=== PATIENT | female | born 1960 | race Caucasian/White ===

== ENCOUNTER 2018-03-14 10:46 | Outpatient (CLI) | payer MEDICARE, MEDICAID ==
--- NOTE | 2018-03-14 12:55 | ULT ---
LIMITED ABDOMINAL ULTRASOUND OF THE AORTA: HISTORY: Abdominal aortic aneurysm. COMPARISON: 03/06/2015 FINDINGS: The aneurysm at the inferior aspect of the abdominal aorta measures 3.7 cm in AP dimension and extend s over an approximate length of 7 cm. IMPRESSION: Interval increase in the size of the abdominal aortic aneurysm since 03/06/2015. POS: ALAINA
== END 2018-03-14 10:47 | disposition home or self-care (01) ==
LOC: BICULT 10:46
PROVIDERS: ATTEND Internal Medicine Cardiovascular Disease
DX: I71.4 Abdominal aortic aneurysm, without rupture (principal)
CPT/HCPCS: 76706

== ENCOUNTER 2020-01-09 12:57 | Outpatient (CLI) | payer MEDICARE, MEDICAID ==
--- NOTE | 2020-01-09 13:24 | MMO ---
Bilateral MAMMO Bilat Screen [facility]. CLINICAL HISTORY: Patient is 59 years old and is seen for screening. The patient has the following family history of breast cancer: sister, at age 54. The patient has no personal history of cancer. VIEWS: The views performed were: bilateral craniocaudal with tomosynthesis and bilateral mediolateral oblique with tomosynthesis. This study has been interpreted with the assistance of computer-aided detection. MAMMOGRAM FINDINGS: The breasts are heterogeneously dense, which could obscure a lesion on mammography. There are benign appearing calcifications seen in both breasts. There are no suspicious masses, suspicious calcifications, or areas of architectural distortion. IMPRESSION: THERE IS NO MAMMOGRAPHIC EVIDENCE OF MALIGNANCY. A ROUTINE FOLLOW-UP MAMMOGRAM IN 1 YEAR IS RECOMMENDED. THE RESULTS OF THIS EXAM WERE SENT TO THE PATIENT. ACR BI-RADS Category 2 - Benign finding MAMMOGRAPHY NOTE: 1. A negative mammogram report should not delay a biopsy if a dominant of clinically suspicious mass is present. 2. Approximately 10% to 15% of breast cancers are not detected by mammography. 3. Adenosis and dense breasts may obscure an underlying neoplasm. Reported by: SHAI GARIBAY MD Electonically Signed: [id number]
--- NOTE | 2020-01-09 13:54 | BD ---
BONE DENSITOMETRY: HISTORY: Postmenopausal screening. FINDINGS: Lumbar Spine: BMD (g/cm2) L1 0.831 T-Score: -1.4 L2 0.986 T-Score: -0.4 L3 0.962 T-Score: -1.1 L4 0.806 T-Score: -2.3 L1-L4 0.895 T-Score: -1.4 Femoral Neck: 0.542 T-Score: -2.8 Total Femur: 0.580 T-Score: -3.0 Impression: 1. Bone mineral density of the femoral neck indicates osteoporosis. 2. Bone mineral density of the lumbar spine indicates osteopenia. POS: AH
== END 2020-01-09 12:58 | disposition home or self-care (01) ==
LOC: BICMAMMO 12:57
PROVIDERS: ATTEND Family Medicine
DX: Z12.31 Encounter for screening mammogram for malignant neoplasm of breast (principal); Z13.820 Encounter for screening for osteoporosis; M81.0 Age-related osteoporosis without current pathological fracture; M85.88 Other specified disorders of bone density and structure, other site; Z80.3 Family history of malignant neoplasm of breast; Z78.0 Asymptomatic menopausal state
CPT/HCPCS: 77063; 77067; 77080

== ENCOUNTER 2020-02-06 06:16 | Outpatient (CLI) | payer MEDICARE, MEDICAID ==
[2020-02-07 12:04] LABS: SARS-CoV-2 MS2 Positive; SARS-CoV-2 N Gene Negative; SARS-CoV-2 S Gene Negative; SARS-CoV-2 by NAA Not Detected (NotDetected); SARS-CoV-2 orf1ab Negative
== END 2020-02-06 06:17 | disposition home or self-care (01) ==
LOC: LABBT 06:16
PROVIDERS: ATTEND Internal Medicine Gastroenterology
DX: Z20.828 Contact with and (suspected) exposure to other viral communicable diseases (principal)
CPT/HCPCS: 87635; U0003

== ENCOUNTER 2020-02-11 07:10 | Day surgery (SDC) | payer MEDICARE, MEDICAID ==
[2020-02-08 11:46] VITALS: BMI 28.5
[2020-02-11] MEDS ORDERED: PROPOFOL 200 MG/20 ML VIAL ONE (14:08)
--- NOTE | 2020-02-11 16:35 | OP ---
DATE OF PROCEDURE: 02/11/2020 PROCEDURE PERFORMED: Esophagogastroduodenoscopy with percutaneous endoscopic gastrostomy tube placement and colonoscopy. PREOPERATIVE DIAGNOSES: Dysphagia and colon cancer screening. PREOPERATIVE NOTE: Ms. Prince has oropharyngeal and esophageal dysphagia. She has had a prior stroke and has spent previously 10 years in the intermediate, but has been home with her sister for the last 7 years. Her sister reports that she is progressively having more trouble eating and refusing her feeds and is taking over an hour for each feeding. She gargles on her food when she does eat. DESCRIPTION OF PROCEDURE: Informed consent was obtained from the patient. She was sedated with total intravenous anesthesia. The bite block was placed and the endoscope was advanced easily to the second portion of the duodenum and retroflexion was performed in the stomach. The patient received 2 g of Ancef prior to the procedure. The esophagus was normal. The GE junction was normal. The stomach was normal including retroflexed views. The pylorus and first and second portions of the duodenum were normal. There was no esophageal stricture or narrowing. The lower esophageal sphincter appears to relax. LES was not significantly tense. The stomach was fully insufflated. The appropriate site in the left upper quadrant below the left ribs was transilluminated and palpated. The skin was sterilized with chlorhexidine and anesthetized with 5 mL of 1% lidocaine. A small 1 cm skin incision was performed. The catheter was placed through the incision into the stomach easily in one attempt under direct visualization. The wire was placed through the catheter and grasped with a snare and pulled out through the patient's mouth. The 20-Lao gastrostomy tube was then placed by the pull-through technique. External bumper was placed at 4 cm which was not tight. Stack of 2x2s was placed underneath the bumper. The skin had antibiotic ointment applied at the incision site. Second-look endoscopy showed the internal bumper to be in good position. The patient tolerated the procedure well without immediate complications. The patient was turned around and rectal exam was performed and was normal. Preparation quality was good. The colonoscope was advanced to the cecum, where the ileocecal valve and appendiceal orifice were clearly identified. There was moderate diverticulosis in the sigmoid colon. The remainder of the colonic mucosa was normal throughout. Retroflexed views in the rectum were normal. IMPRESSION: 1. Normal EGD. 2. Successful placement of 20-Lao percutaneous endoscopic gastrostomy tube with a rubber internal bumper and external bumper placed at 4 cm. 3. Moderate diverticulosis of the sigmoid colon. 4. Otherwise normal colonoscopy. RECOMMENDATIONS: 1. Dietitian consultation. 2. Modified barium swallow and barium esophagogram to be scheduled in the future. 3. Repeat colonoscopy in 10 years. 4. Return to the office tomorrow to recheck the PEG tube. Job ID: [id number]
== END 2020-02-11 14:10 | disposition home or self-care (01) ==
LOC: SDC 07:10
PROVIDERS: ATTEND Internal Medicine Gastroenterology
PROC: 0DJD8ZZ Inspection of Lower Intestinal Tract, Via Natural or Artificial Opening Endoscopic (ICD-10-PCS; principal; 2020-02-11)
PROC: 0DH63UZ Insertion of Feeding Device into Stomach, Percutaneous Approach (ICD-10-PCS; 2020-02-11)
DX: R13.12 Dysphagia, oropharyngeal phase (principal); R13.19 Other dysphagia; K59.09 Other constipation; K57.30 Diverticulosis of large intestine without perforation or abscess without bleeding; F79 Unspecified intellectual disabilities; K92.0 Hematemesis; F03.90 Unspecified dementia, unspecified severity, without behavioral disturbance, psychotic disturbance, mood disturbance, and anxiety; E03.9 Hypothyroidism, unspecified; I25.2 Old myocardial infarction; I10 Essential (primary) hypertension; E78.00 Pure hypercholesterolemia, unspecified; E78.5 Hyperlipidemia, unspecified; I69.351 Hemiplegia and hemiparesis following cerebral infarction affecting right dominant side; G40.909 Epilepsy, unspecified, not intractable, without status epilepticus; I71.2 Thoracic aortic aneurysm, without rupture; F41.9 Anxiety disorder, unspecified; Z87.891 Personal history of nicotine dependence; Z79.899 Other long term (current) drug therapy
CPT/HCPCS: J0690; J2704

== ENCOUNTER 2020-02-12 23:54 | Inpatient (IN) | payer MEDICARE, MEDICAID ==
[2020-02-13 01:32] LABS: CKMB 0.9 ng/mL (0-6.6)
[2020-02-13 01:48] LABS: SARS-CoV-2 NAA Rapid Test Not Detected (NotDetected)
[2020-02-13] MEDS ORDERED: Oseltamivir 6 MG/ML ORAL SUSP PO SCH (02:00)
--- NOTE | 2020-02-13 02:58 | HP ---
CHIEF COMPLAINT: Shortness of breath and fever. HISTORY OF PRESENT ILLNESS: Ms. Prince is a 59-year-old female with past medical history of coronary artery disease, myocardial infarction, hyperlipidemia, hypertension, CVA, seizures, among others, transferred from [facility] for pneumonia. The patient was at her GI doctor's office today for evaluation of her recently placed PEG tube. After leaving the appointment, she immediately became short of breath. She has chronic dysphagia and a very weak cough. She was taken to [place] [facility] and due to high fever, was given ceftriaxone, metronidazole along with steroids and DuoNeb. She required 2 L of oxygen nasal cannula. She is not on oxygen at home. The patient's sister is her primary caregiver. The patient has a history of CVA with residual stroke deficits. She had a coronavirus test one week ago and was negative. She got her flu shot in the beginning of December. Workup in the emergency room, the patient was positive for influenza B, chest x-ray showed bilateral infiltrates, basilar? She had elevated WBC count of 17,000 and was tachycardic. Septic workup done in the ED. She was started on IV antibiotics. The patient is being transferred to our medical facility for further management. PAST MEDICAL HISTORY: As mentioned above in history of present illness. PAST SURGICAL HISTORY: Feeding tube placement on 02/11/2020. PAST SOCIAL HISTORY: No smoking history. Denies drug use. No alcohol use. FAMILY HISTORY: Reviewed and noncontributory. HOME MEDICATIONS: Please see home medication reconciliation form for updated medications. ALLERGIES: NO KNOWN ALLERGIES. REVIEW OF SYSTEMS: Unable to obtain due to the patient's underlying medical condition. The patient is unable to give any history. Most of the history from the patient's family/sister. PHYSICAL EXAMINATION: GENERAL: The patient is awake, alert, in mild distress. VITAL SIGNS: Blood pressure 139/77, pulse is 75, respiratory rate is 28, temperature is 99.6, and oxygen saturation 96% on room air. HEAD AND NECK: Normocephalic and atraumatic. Neck is supple. CHEST: Coarse bilateral breath sounds. HEART: S1 and S2. Regular. ABDOMEN: Soft. Feeding tube in place. Bowel sounds present. NEUROLOGIC: Awake and alert. No new residual deficits. PSYCHIATRIC: Unable to assess. EXTREMITIES: No clubbing. No cyanosis. LABORATORY DATA: WBC 17.3, hemoglobin 14.2, platelets 156. Sodium 141, potassium 4, BUN is 18, creatinine 0.9, glucose 132. Initial troponin 0.08, repeat troponin is 0.09. BNP is 280. Chest x-ray, cardiomegaly with mild interstitial densities at the lung bases. ASSESSMENT: 1. Pneumonia, aspiration. 2. Influenza B. 3. Dysphagia, high risk for aspiration. 4. Recent feeding tube placement. 5. History of cerebrovascular accident with residual deficits. 6. Coronary artery disease. 7. Seizure disorder. PLAN: 1. Admit. 2. Septic workup done in the ED. 3. IV antibiotics for possible aspiration. 4. Cautious IV fluid hydration. 5. The patient was given aspirin. 6. Seizure troponins. 7. Consult Cardiology in a.m. for ? Detectable troponin. 8. Reconcile home medications. 9. DVT prophylaxis as appropriate. 10. Expected length of stay, 2 midnights. Job ID: [id number]
[2020-02-13] MEDS: Dextrose 5 %-0.45 % NaCl 1,000 ML IV SCH ×2 (04:03→16:47)
[2020-02-13 04:20] VITALS: BMI 23.4
[2020-02-13] MEDS: Piperacillin/Tazobactam 3.375 GM in Sodium Chloride 0.9% 100 ML IVPB SCH ×3 (04:58→17:02)
[2020-02-13 05:25] LABS: Troponin I 0.087 ng/mL (< 0.028)
[2020-02-13 06:57] LABS: Troponin I 0.055 ng/mL (< 0.028)
[2020-02-13] MEDS: Levothyroxine Sodium 50 MCG TAB PO SCH (08:32)
[2020-02-13] MEDS: hydrALAZINE 10 MG TAB PO SCH ×2 (08:32→21:12)
[2020-02-13] MEDS: Lisinopril 20 MG TAB PO SCH (08:32)
[2020-02-13] MEDS: Multivit, Therapeutic 1 TAB PO SCH (08:33)
[2020-02-13] MEDS: Amlodipine 10 MG TAB PO SCH (08:33)
[2020-02-13] MEDS ORDERED: AMLODIPINE BESYLATE 10 MG PO SCH (09:00)
[2020-02-13] MEDS ORDERED: Non-Formulary Item 1 EACH (Multivitamin [Multi-Vitamin Daily] 1 TABLET Tablet) PO SCH (09:00)
[2020-02-13] MEDS ORDERED: Non-Formulary Item 1 EACH (Lisinopril [Lisinopril] 40 MG Tablet) PO SCH (09:00)
[2020-02-13] MEDS ORDERED: PHENYTOIN SODIUM 300 MG PO SCH (09:00)
[2020-02-13] MEDS ORDERED: Aspirin 300 MG Suppository PR SCH (09:00)
--- NOTE | 2020-02-13 10:28 | CON ---
DATE OF CONSULTATION: 02/13/2020 REASON FOR CONSULTATION: Increased troponin in the setting of influenza and pneumonia. HISTORY OF PRESENT ILLNESS: This is a 59-year-old woman with history of severe stroke in the past, cared for by her family. The patient recently had a PEG tube placed at the hospital with fever and pneumonia. As part of the evaluation, she has undergone troponin levels which were slightly elevated. No chest pain or pressure. The patient is really nonverbal, however, she does seem to understand. MEDICATIONS: Please see nurse's notes, but at home she was on: 1. Lisinopril. 2. Amlodipine. 3. Atorvastatin. ALLERGIES: NONE KNOWN. SOCIAL HISTORY: Cared for by her family. Previous stroke. She is bedridden, nonverbal. PHYSICAL EXAMINATION: VITAL SIGNS: Blood pressure 120/60, pulse 60 and regular. LUNGS: Clear. CARDIAC: Normal S1. Normal S2. ABDOMEN: Soft, nontender. EXTREMITIES: Warm and dry. No cyanosis. No edema. NEUROLOGIC: The patient has had previous extensive stroke as is outlined in the chart. LABORATORY DATA: Troponin 0.055. EKG, sinus rhythm, some nonspecific ST changes, some occasional PVCs. ASSESSMENT: 1. Pneumonia. 2. Influenza. 3. Probable underlying coronary artery disease. 4. Increased troponin, demand ischemia, type 2 infarction. PLAN: 1. Continue supportive care from a pulmonary standpoint. 2. She is on aspirin. 3. Antibiotics. 4. Atorvastatin. 5. Lisinopril. 6. Echocardiogram has been ordered. No other recommendations. Job ID: [id number]
--- NOTE | 2020-02-13 12:13 | PDOC.HOSPP ---
- Subjective Encounter Date: 02/13/20 Encounter Time: 11:15 Subjective: awake, speaks very few words, not in distress has cough and is not able to clear oral secretions no abd pain or chest pain or nausea - Objective Vital Signs & Weight: Vital Signs (12 hours) Temp Pulse Resp BP Pulse Ox 02/13/20 11:15 98 F 68 20 142/73 H 98 02/13/20 08:33 61 02/13/20 08:32 61 02/13/20 07:15 97.7 F 61 20 120/64 98 02/13/20 04:22 97 02/13/20 03:30 97.4 F L 60 16 171/71 H 97 Weight Weight 136 lb 11.2 oz Hospitalist ROS - Medication Medications: Active Medications Generic Name Dose Route Start Last Admin Trade Name Freq PRN Reason Stop Dose Admin Amlodipine Besylate 10 mg 02/13/20 09:00 02/13/20 08:33 Amlodipine 10 Mg Tab PO 10 mg DAILY WAN Administration Aspirin 300 mg 02/13/20 09:00 02/13/20 08:33 Aspirin 300 Mg Suppository KS Not Given DAILY WAN Hydralazine HCl 10 mg 02/13/20 09:00 02/13/20 08:32 Hydralazine 10 Mg Tab PO 10 mg Q12HR WAN Administration Dextrose/Sodium Chloride 1,000 mls @ 75 mls/hr 02/13/20 01:30 02/13/20 04:03 D5 1/2 Ns IV 1,000 mls .[id number] WAN Administration Piperacillin Sod/Tazobactam 100 mls @ 200 mls/hr 02/13/20 06:00 02/13/20 11:07 Sod 3.375 gm/ Sodium Chloride IVPB 100 mls Q6HR WAN Administration Levothyroxine Sodium 50 mcg 02/13/20 09:00 02/13/20 08:32 Levothyroxine Sodium 50 Mcg Tab PO 50 mcg DAILY WAN Administration Lisinopril 40 mg 02/13/20 09:00 02/13/20 08:32 Lisinopril 20 Mg Tab PO 40 mg DAILY WAN Administration Multivitamins 1 tab 02/13/20 09:00 02/13/20 08:33 Multivit, Therapeutic 1 Tab PO 1 tab DAILY WAN Administration Phenytoin Sodium 300 mg 02/13/20 09:00 02/13/20 08:32 Phenytoin Sodium Extended 100 Mg Cap PO 300 mg DAILY WAN Administration Sodium Chloride 10 ml 02/13/20 09:00 02/13/20 08:33 Flush - Normal Saline 10 Ml Syringe IVF 10 ml Q12HR WAN Administration - Exam General Appearance: awake alert Eye: PERRL, anicteric sclera ENT: normocephalic atraumatic, moist mucosa Neck: supple, no JVD Heart: RRR, no murmur Respiratory: no wheezes, rales, rhonchi Gastrointestinal: soft, non-tender, non-distended, normal bowel sounds Gastrointestinal - other findings: peg+ Extremities: no cyanosis, no edema Neurological: no new deficit Hosp A/P (1) Aspiration pneumonia Code(s): J69.0 - PNEUMONITIS DUE TO INHALATION OF FOOD AND VOMIT Status: Acute Qualifiers: Aspiration pneumonia type: due to regurgitated food Laterality: bilateral (2) Dysphagia Code(s): R13.10 - DYSPHAGIA, UNSPECIFIED Status: Chronic Qualifiers: Dysphagia type: oropharyngeal phase Qualified Code(s): R13.12 - Dysphagia, oropharyngeal phase (3) Influenza B Code(s): J10.1 - FLU DUE TO OTH IDENT INFLUENZA VIRUS W OTH RESP MANIFEST Status: Suspected (4) Hemiparesis and other late effects of cerebrovascular accident Code(s): I69.359 - HEMIPLGA FOLLOWING CEREBRAL INFARCTION AFFECTING UNSP SIDE; I69.398 - OTHER SEQUELAE OF CEREBRAL INFARCTION Status: Chronic (5) CAD (coronary artery disease) Code(s): I25.10 - ATHSCL HEART DISEASE OF [place] CORONARY ARTERY W/O ANG PCTRS Status: Chronic Qualifiers: Coronary Disease-Associated Artery/Lesion type: [place] artery [place] vs. transplanted heart: [place] heart Associated angina: with stable angina Qualified Code(s): I25.118 - Atherosclerotic heart disease of [place] coronary artery with other forms of angina pectoris (6) Seizure disorder Code(s): G40.909 - EPILEPSY, UNSP, NOT INTRACTABLE, WITHOUT STATUS EPILEPTICUS Status: Chronic (7) HTN (hypertension) Code(s): I10 - ESSENTIAL (PRIMARY) HYPERTENSION Status: Chronic Qualifiers: Hypertension type: essential hypertension Qualified Code(s): I10 - Essential (primary) hypertension (8) Dyslipidemia Code(s): E78.5 - HYPERLIPIDEMIA, UNSPECIFIED Status: Chronic (9) Hypothyroidism Code(s): E03.9 - HYPOTHYROIDISM, UNSPECIFIED Status: Chronic Qualifiers: Hypothyroidism type: acquired Qualified Code(s): E03.9 - Hypothyroidism, unspecified - Plan is on zosyn, nebs and tamiflu I cannot find influenza screen results being +ve for B type, will check records again continue norvasc, lisinopril, asp, hydralazine, lipitor, dilantin, synthroid and aricept for now speech consultation, for MBS in am PT to mobilize as tolerated cardiology is not planning any procedures now, will transfer to medical floor echo pending hemostable for now
[2020-02-13] MEDS ORDERED: FLU VACC QS2020-21(6MOS UP)/PF 60 MCG/0.5 ML SYRINGE IM ONE (21:00)
[2020-02-13] MEDS: Atorvastatin Calcium 40 MG TAB PO SCH (21:12)
[2020-02-13] MEDS: Oseltamivir 6 MG/ML ORAL SUSP PO SCH (21:12)
[2020-02-13] MEDS: Donepezil HCl 10 MG TAB PO SCH (21:12)
[2020-02-13] MEDS: Acetaminophen 325 MG TAB PO PRN (22:19)
[2020-02-13] MEDS ORDERED: diphenhydrAMINE 50 MG/ML VIAL IVP SCH (23:30)
--- NOTE | 2020-02-13 23:35 | PDOC.EVN ---
Event Note - Event Note Event Note: Nursing called, red rash on patient face and trunk, believes was on face today, and is now spread. Patient VSS, no resp. distress, no stridor, getting multiple abx and tamiflu. Gave benadryl and pepcid x 1 dose. continue to monitor.
[2020-02-13] MEDS ORDERED: Famotidine/PF 20 mg/2ml Vial SLOW IVP SCH (23:45)
[2020-02-14] MEDS: Piperacillin/Tazobactam 3.375 GM in Sodium Chloride 0.9% 100 ML IVPB SCH ×2 (00:22→05:13)
[2020-02-14] MEDS: Dextrose 5 %-0.45 % NaCl 1,000 ML IV SCH ×2 (05:14→15:02)
[2020-02-14] MEDS: Acetaminophen 325 MG TAB PO PRN ×2 (05:15→20:08)
[2020-02-14] MEDS: Clindamycin 150 MG CAP PO SCH ×3 (06:38→23:00)
[2020-02-14 06:41] LABS: #Eosinphils 0.2 thou/uL (0.0-0.7); #Lymphocytes 0.9 thou/uL (1.20-3.40); #Monocytes 0.5 thou/uL (0.11-0.59); #Neutrophils 6.3 thou/uL (1.40-6.50); %Basophils 0.1 % (0.0-1.0); %Eosinophils 2.1 % (0.0-10.0); %Lymphocytes 11.1 % (21.0-51.0); %Monocytes 5.9 % (0.0-10.0); %Neutrophils 80.9 % (42.0-75.0); Hemoglobin 11.2 g/dL (12.0-16.0); Mean Corpuscular HGB CONC 33.4 g/dL (32.0-36.0); Mean Corpuscular Hemoglobin 32.7 pg (27.0-31.0); Mean Platelet Volume 10.3 fL (7.4-10.4); Platelet Count 126 thou/uL (130-400); RBC Distribution Width 11.7 % (11.5-14.5); Red Blood Cell (RBC) Count 3.42 mill/uL (4.20-5.40); White Blood Cell (WBC) Count 7.8 thou/uL (4.8-10.8)
[2020-02-14 07:04] LABS: ALT (SGPT) 16 U/L (8-55); AST (SGOT) 17 U/L (5-34); Alkaline Phosphatase 82 U/L (40-110); Anion Gap 11 mmol/L (10-20); BUN (Urea Nitrogen) 19 mg/dL (9.8-20.1); Bilirubin, Total 0.3 mg/dL (0.2-1.2); Calc. Creatinine Clearance 52 mL/min (70-130); Calcium 8.5 mg/dL (7.8-10.44); Carbon Dioxide 24 mmol/L (23-31); Chloride 105 mmol/L (98-107); Estimated GFR-MDRD 50; Globulin 2.2 g/dL (2.4-3.5); Glucose 126 mg/dL (80-115); Potassium 3.4 mmol/L (3.5-5.1); Protein, Total 5.2 g/dL (6.0-8.3); Sodium 137 mmol/L (136-145)
[2020-02-14] MEDS: Lisinopril 20 MG TAB PO SCH (09:05)
[2020-02-14] MEDS: Aspirin 81 mg Enteric Coated Tablet PO SCH (09:05)
[2020-02-14] MEDS: Multivit, Therapeutic 1 TAB PO SCH (09:05)
[2020-02-14] MEDS: Amlodipine 10 MG TAB PO SCH (09:06)
[2020-02-14] MEDS: Famotidine/PF 20 mg/2ml Vial SLOW IVP SCH (09:07)
[2020-02-14] MEDS: Levothyroxine Sodium 50 MCG TAB PO SCH (11:04)
[2020-02-14] MEDS: methylPREDNISolone Sod Succ 40 MG VIAL IVP SCH ×2 (14:06→22:59)
--- NOTE | 2020-02-14 14:16 | PDOC.HOSPP ---
- Subjective Encounter Date: 02/14/20 Encounter Time: 10:00 Subjective: rash is better this morning, no itching or coughing is breathing better, speaks few words, not in distress - Objective Vital Signs & Weight: Vital Signs (12 hours) Temp Pulse Resp BP BP Pulse Ox Pulse Ox 02/14/20 12:51 98.9 F 70 16 120/72 97 02/14/20 10:50 98 02/14/20 09:06 64 118/75 02/14/20 09:05 118/75 02/14/20 08:00 98 02/14/20 07:24 99.5 F 64 16 118/75 98 02/14/20 07:18 78 16 98 02/14/20 04:58 98.4 F 66 18 124/64 97 02/14/20 02:30 61 16 98 Weight Admit Weight 136 lb 11.2 oz Weight 136 lb 11.2 oz I&O: 02/13/20 02/14/20 02/15/20 06:59 06:59 06:59 Intake Total 2497 534 Output Total 500 Balance 1997 534 Result Diagrams: 02/14/20 06:30 02/14/20 06:30 Hospitalist ROS - Medication Medications: Active Medications Generic Name Dose Route Start Last Admin Trade Name Freq PRN Reason Stop Dose Admin Acetaminophen 650 mg 02/13/20 21:40 02/14/20 05:15 Acetaminophen 325 Mg Tab PO 650 mg Q4H PRN Administration Headache/Fever/Mild Pain (1-3) Albuterol/Ipratropium 3 ml 02/13/20 15:05 02/14/20 07:18 Ipratropium/Albuterol Sulfate 3 Ml Neb NEB 3 ml [id number] WAN Administration Amlodipine Besylate 10 mg 02/13/20 09:00 02/14/20 09:06 Amlodipine 10 Mg Tab PO 10 mg DAILY WAN Administration Aspirin 81 mg 02/14/20 09:00 02/14/20 09:05 Aspirin 81 Mg Enteric Coated Tablet PO 81 mg DAILY WAN Administration Atorvastatin Calcium 40 mg 02/13/20 21:00 02/13/20 21:12 Atorvastatin Calcium 40 Mg Tab PO 40 mg HS WAN Administration Clindamycin HCl 300 mg 02/14/20 07:00 02/14/20 06:38 Clindamycin 150 Mg Cap PO 300 mg Q8H WAN Administration Donepezil HCl 10 mg 02/13/20 21:00 02/13/20 21:12 Donepezil Hcl 10 Mg Tab PO 10 mg HS WAN Administration Famotidine 40 mg 02/14/20 09:00 02/14/20 09:07 Famotidine/Pf 20 Mg/2ml Vial SLOW IVP 40 mg DAILY WAN Administration Dextrose/Sodium Chloride 1,000 mls @ 75 mls/hr 02/13/20 01:30 02/14/20 05:14 D5 1/2 Ns IV 1,000 mls .[id number] WAN Administration Lisinopril 40 mg 02/13/20 09:00 02/14/20 09:05 Lisinopril 20 Mg Tab PO 40 mg DAILY WAN Administration Methylprednisolone Sodium Succinate 20 mg 02/14/20 14:00 02/14/20 14:06 Methylprednisolone Sod Succ 40 Mg Vial IVP 20 mg Q8HR WAN Administration Multivitamins 1 tab 02/13/20 09:00 02/14/20 09:05 Multivit, Therapeutic 1 Tab PO 1 tab DAILY WAN Administration Oseltamivir Phosphate 75 mg 02/13/20 21:00 02/13/20 21:12 Oseltamivir 6 Mg/Ml Oral Susp PO 75 mg Q24HR WAN Administration Phenytoin Sodium 300 mg 02/13/20 09:00 02/14/20 09:05 Phenytoin Sodium Extended 100 Mg Cap PO 300 mg DAILY WAN Administration Sodium Chloride 10 ml 02/13/20 09:00 02/14/20 09:06 Flush - Normal Saline 10 Ml Syringe IVF Not Given Q12HR WAN - Exam General Appearance: awake alert Eye: PERRL, anicteric sclera ENT: no oropharyngeal lesions, dry oral mucosa Neck: supple, no JVD Heart: RRR, no murmur Respiratory: no wheezes, no rales Gastrointestinal: soft, non-tender, non-distended, normal bowel sounds Extremities: no cyanosis, no edema Neurological: cranial nerve grossly intact, hemiplegia Hosp A/P (1) Aspiration pneumonia Code(s): J69.0 - PNEUMONITIS DUE TO INHALATION OF FOOD AND VOMIT Status: Acute Qualifiers: Aspiration pneumonia type: due to regurgitated food Laterality: bilateral (2) Dysphagia Code(s): R13.10 - DYSPHAGIA, UNSPECIFIED Status: Chronic Qualifiers: Dysphagia type: oropharyngeal phase Qualified Code(s): R13.12 - Dysphagia, oropharyngeal phase (3) Influenza B Code(s): J10.1 - FLU DUE TO OTH IDENT INFLUENZA VIRUS W OTH RESP MANIFEST Status: Acute (4) Hemiparesis and other late effects of cerebrovascular accident Code(s): I69.359 - HEMIPLGA FOLLOWING CEREBRAL INFARCTION AFFECTING UNSP SIDE; I69.398 - OTHER SEQUELAE OF CEREBRAL INFARCTION Status: Chronic (5) CAD (coronary artery disease) Code(s): I25.10 - ATHSCL HEART DISEASE OF [place] CORONARY ARTERY W/O ANG PCTRS Status: Chronic Qualifiers: Coronary Disease-Associated Artery/Lesion type: [place] artery [place] vs. transplanted heart: [place] heart Associated angina: with stable angina Qualified Code(s): I25.118 - Atherosclerotic heart disease of [place] coronary artery with other forms of angina pectoris (6) Seizure disorder Code(s): G40.909 - EPILEPSY, UNSP, NOT INTRACTABLE, WITHOUT STATUS EPILEPTICUS Status: Chronic (7) HTN (hypertension) Code(s): I10 - ESSENTIAL (PRIMARY) HYPERTENSION Status: Chronic Qualifiers: Hypertension type: essential hypertension Qualified Code(s): I10 - Essential (primary) hypertension (8) Dyslipidemia Code(s): E78.5 - HYPERLIPIDEMIA, UNSPECIFIED Status: Chronic (9) Hypothyroidism Code(s): E03.9 - HYPOTHYROIDISM, UNSPECIFIED Status: Chronic Qualifiers: Hypothyroidism type: acquired Qualified Code(s): E03.9 - Hypothyroidism, unspecified - Plan is on clindamycin, nebs and tamiflu continue norvasc, lisinopril, asp, hydralazine, lipitor, dilantin, synthroid and aricept for now PT to mobilize as tolerated echo pending hemostable for now she developed drug rash with redness all over, zosyn is dc'd now, steroids, stable now with rash slowly receding d/w sister over phone and gave full updates, she is aware that patient is high risk for aspiration and no oral diet will be attempted now family essentially lift her up, she sometimes helps with transfers and 1-2 steps...this has been for last 10 yrs now per sister, they want her coming home when ready for dc
[2020-02-14] MEDS: Donepezil HCl 10 MG TAB PO SCH (20:05)
[2020-02-14] MEDS: Atorvastatin Calcium 40 MG TAB PO SCH (20:05)
[2020-02-14] MEDS: Oseltamivir 6 MG/ML ORAL SUSP PO SCH (20:05)
[2020-02-15] MEDS: Levothyroxine Sodium 50 MCG TAB PO SCH (05:44)
[2020-02-15] MEDS: methylPREDNISolone Sod Succ 40 MG VIAL IVP SCH (05:45)
[2020-02-15] MEDS: Clindamycin 150 MG CAP PO SCH ×3 (06:09→21:31)
[2020-02-15] MEDS: Dextrose 5 %-0.45 % NaCl 1,000 ML IV SCH (06:13)
[2020-02-15 07:53] LABS: #Lymphocytes 0.5 thou/uL (1.20-3.40); #Monocytes 0.4 thou/uL (0.11-0.59); #Neutrophils 3.7 thou/uL (1.40-6.50); %Basophils 0.2 % (0.0-1.0); %Eosinophils 0.8 % (0.0-10.0); %Lymphocytes 11.4 % (21.0-51.0); %Monocytes 8.9 % (0.0-10.0); %Neutrophils 78.8 % (42.0-75.0); Hemoglobin 10.7 g/dL (12.0-16.0); Mean Corpuscular HGB CONC 32.1 g/dL (32.0-36.0); Mean Corpuscular Hemoglobin 30.9 pg (27.0-31.0); Mean Corpuscular Volume 96.1 fL (78.0-98.0); Mean Platelet Volume 11.4 fL (7.4-10.4); Platelet Count 138 thou/uL (130-400); RBC Distribution Width 11.5 % (11.5-14.5); Red Blood Cell (RBC) Count 3.46 mill/uL (4.20-5.40); White Blood Cell (WBC) Count 4.7 thou/uL (4.8-10.8)
[2020-02-15 08:06] LABS: ALT (SGPT) 20 U/L (8-55); AST (SGOT) 19 U/L (5-34); Alkaline Phosphatase 80 U/L (40-110); Anion Gap 11 mmol/L (10-20); BUN (Urea Nitrogen) 16 mg/dL (9.8-20.1); Bilirubin, Total Less than 0.2 mg/dL (0.2-1.2); Calc. Creatinine Clearance 60 mL/min (70-130); Calcium 8.4 mg/dL (7.8-10.44); Carbon Dioxide 27 mmol/L (23-31); Chloride 107 mmol/L (98-107); Estimated GFR-MDRD 59; Globulin 2.3 g/dL (2.4-3.5); Glucose 155 mg/dL (80-115); Protein, Total 5.3 g/dL (6.0-8.3); Sodium 141 mmol/L (136-145)
[2020-02-15] MEDS: Lisinopril 20 MG TAB PO SCH (09:13)
[2020-02-15] MEDS: Famotidine/PF 20 mg/2ml Vial SLOW IVP SCH (09:13)
[2020-02-15] MEDS: Aspirin 81 mg Enteric Coated Tablet PO SCH (09:13)
[2020-02-15] MEDS: Multivit, Therapeutic 1 TAB PO SCH (09:13)
[2020-02-15] MEDS: Amlodipine 10 MG TAB PO SCH (09:13)
--- NOTE | 2020-02-15 14:22 | PDOC.HOSPP ---
- Subjective Encounter Date: 02/15/20 Encounter Time: 09:15 Subjective: awake, is having trouble clearing oral secretions and unable to cough awake, responds in few words for some questions, mostly non verbal - Objective Vital Signs & Weight: Vital Signs (12 hours) Temp Pulse Resp BP BP Pulse Ox 02/15/20 13:34 60 18 95 02/15/20 11:27 99.0 F 60 20 155/61 H 95 02/15/20 09:13 79 125/78 02/15/20 08:00 98 02/15/20 07:47 98.2 F 79 20 174/77 H 95 02/15/20 07:21 97 02/15/20 07:19 65 18 97 02/15/20 05:30 98.5 F 90 21 H 149/68 H 96 Weight Admit Weight 136 lb 11.2 oz Weight 136 lb 11.2 oz I&O: 02/14/20 02/15/20 02/16/20 06:59 06:59 06:59 Intake Total 2496 2493 534 Output Total 500 400 Balance 19963 534 Result Diagrams: 02/15/20 07:11 02/15/20 07:11 Hospitalist ROS - Medication Medications: Active Medications Generic Name Dose Route Start Last Admin Trade Name Freq PRN Reason Stop Dose Admin Acetaminophen 650 mg 02/13/20 21:40 02/14/20 20:08 Acetaminophen 325 Mg Tab PO 650 mg Q4H PRN Administration Headache/Fever/Mild Pain (1-3) Albuterol/Ipratropium 3 ml 02/13/20 15:05 02/15/20 13:34 Ipratropium/Albuterol Sulfate 3 Ml Neb NEB 3 ml [id number] WAN Administration Amlodipine Besylate 10 mg 02/13/20 09:00 02/15/20 09:13 Amlodipine 10 Mg Tab PO 10 mg DAILY WAN Administration Aspirin 81 mg 02/14/20 09:00 02/15/20 09:13 Aspirin 81 Mg Enteric Coated Tablet PO 81 mg DAILY WAN Administration Atorvastatin Calcium 40 mg 02/13/20 21:00 02/14/20 20:05 Atorvastatin Calcium 40 Mg Tab PO 40 mg HS WAN Administration Clindamycin HCl 300 mg 02/14/20 07:00 02/15/20 06:09 Clindamycin 150 Mg Cap PO 300 mg Q8H WAN Administration Donepezil HCl 10 mg 02/13/20 21:00 02/14/20 20:05 Donepezil Hcl 10 Mg Tab PO 10 mg HS WAN Administration Famotidine 40 mg 02/14/20 09:00 02/15/20 09:13 Famotidine/Pf 20 Mg/2ml Vial SLOW IVP 40 mg DAILY WAN Administration Dextrose/Sodium Chloride 1,000 mls @ 75 mls/hr 02/13/20 01:30 02/15/20 06:13 D5 1/2 Ns IV 1,000 mls .[id number] WAN Administration Levothyroxine Sodium 50 mcg 02/15/20 06:00 02/15/20 05:44 Levothyroxine Sodium 50 Mcg Tab PO 50 mcg 0600 WAN Administration Lisinopril 40 mg 02/13/20 09:00 02/15/20 09:13 Lisinopril 20 Mg Tab PO 40 mg DAILY WAN Administration Multivitamins 1 tab 02/13/20 09:00 02/15/20 09:13 Multivit, Therapeutic 1 Tab PO 1 tab DAILY WAN Administration Oseltamivir Phosphate 75 mg 02/13/20 21:00 02/14/20 20:05 Oseltamivir 6 Mg/Ml Oral Susp PO 75 mg Q24HR WAN Administration Sodium Chloride 10 ml 02/13/20 09:00 02/15/20 09:14 Flush - Normal Saline 10 Ml Syringe IVF 10 ml Q12HR WAN Administration - Exam General Appearance: awake alert Eye: PERRL, anicteric sclera ENT: no oropharyngeal lesions, moist mucosa Neck: supple, no JVD Heart: RRR, no murmur Respiratory: no wheezes, no rales, rhonchi Gastrointestinal: soft, non-tender, non-distended, normal bowel sounds Gastrointestinal - other findings: peg+ Extremities: no cyanosis, no edema Neurological: hemiplegia Hosp A/P (1) Aspiration pneumonia Code(s): J69.0 - PNEUMONITIS DUE TO INHALATION OF FOOD AND VOMIT Status: Acute Qualifiers: Aspiration pneumonia type: due to regurgitated food Laterality: bilateral (2) Dysphagia Code(s): R13.10 - DYSPHAGIA, UNSPECIFIED Status: Chronic Qualifiers: Dysphagia type: oropharyngeal phase Qualified Code(s): R13.12 - Dysphagia, oropharyngeal phase (3) Influenza B Code(s): J10.1 - FLU DUE TO OTH IDENT INFLUENZA VIRUS W OTH RESP MANIFEST Stat us: Acute (4) Hemiparesis and other late effects of cerebrovascular accident Code(s): I69.359 - HEMIPLGA FOLLOWING CEREBRAL INFARCTION AFFECTING UNSP SIDE; I69.398 - OTHER SEQUELAE OF CEREBRAL INFARCTION Status: Chronic (5) CAD (coronary artery disease) Code(s): I25.10 - ATHSCL HEART DISEASE OF [place] CORONARY ARTERY W/O ANG PCTRS Status: Chronic Qualifiers: Coronary Disease-Associated Artery/Lesion type: [place] artery [place] vs. transplanted heart: [place] heart Associated angina: with stable angina Qualified Code(s): I25.118 - Atherosclerotic heart disease of [place] coronary artery with other forms of angina pectoris (6) Seizure disorder Code(s): G40.909 - EPILEPSY, UNSP, NOT INTRACTABLE, WITHOUT STATUS EPILEPTICUS Status: Chronic (7) HTN (hypertension) Code(s): I10 - ESSENTIAL (PRIMARY) HYPERTENSION Status: Chronic Qualifiers: Hypertension type: essential hypertension Qualified Code(s): I10 - Essential (primary) hypertension (8) Dyslipidemia Code(s): E78.5 - HYPERLIPIDEMIA, UNSPECIFIED Status: Chronic (9) Hypothyroidism Code(s): E03.9 - HYPOTHYROIDISM, UNSPECIFIED Status: Chronic Qualifiers: Hypothyroidism type: acquired Qualified Code(s): E03.9 - Hypothyroidism, unspecified - Plan is on clindamycin, nebs and tamiflu continue norvasc, lisinopril, asp, hydralazine, lipitor, dilantin, synthroid and aricept for now PT to mobilize as tolerated echo pending hemostable for now she developed drug rash with redness all over, zosyn was dc'd, steroids, stable now with rash slowly receding d/w sister over phone and gave full updates, she is aware that patient is high risk for aspiration and no oral diet will be attempted now family essentially lift her up, she sometimes helps with transfers and 1-2 steps...this has been for last 10 yrs now per sister, they want her coming home when ready for dc she has had inability to clear oral secretions for over a year now per sister, is aware of serious aspiration, she wants her to be dnar. may dc home if guardian HH with PT, speech, nursing and home peg feeds are arranged and sister is ready to take her home. I have faxed her home meds to her pharmacy including changing her long acting dilantin to short acting med.
--- NOTE | 2020-02-15 20:31 | RAD ---
Frontal radiograph chest: 02/15/2020 COMPARISON: 02/12/2020 HISTORY: Tachypnea, possible fluid overload FINDINGS: Stable enlargement of the cardiac silhouette. There is pulmonary vascular congestion with n onspecific perihilar and bibasilar interstitial prominence as well as mild areas of linear interstitial density in bilateral lung apices. There is dense pleural-parenchymal opacity within the left lung base suggesting left basilar consolidation/collapse and left pleural fluid. Airspace disease and small volume pleural effusions suspected on the right. There is atherosclerotic calcifica tion of the aortic arch. Aeration has slightly worsened when compared to the 02/12/2020 exam. IMPRESSION: Findings suspicious for interstitial and alveolar edema. Infectious pneumonitis or aspira tion cannot be excluded. Follow-up imaging following treatment to document resolution advised.
--- NOTE | 2020-02-15 20:55 | PDOC.EVN ---
Event Note - Event Note Event Note: Notified by RN, patient tachypnea and crackles. O2 sat 92% on 2L by NC. IV fluids discontinued. CXR ordered and O2 to be increased to 4L by NC. CXR has shown findings suspicious for interstitial and alveolar edema. Infectious pneumonitis or aspiration cant be excluded and fup imaging advised. Order placed for Lovenox 40 mg IV Will check ABG CXR to be repeated in AM to assess for improvement,underlying infectious process. Patient seen and examined. Has had 800 mLs out since Lasix was given. Continue to work hard to breathe and tachypneic. Her sats have improved to 100% on 4L by NC. Patient unable to communicate. Lungs notable for wheezing/secretions. Shes unable to clear secretions. Additional neb ordered. Will start scopolamine. ABG ordered, may need BiPAP given distress and concern patient will tire out.
[2020-02-15] MEDS ORDERED: Furosemide 40 MG/4 ML VIAL SLOW IVP SCH (21:00)
[2020-02-15] MEDS: Donepezil HCl 10 MG TAB PO SCH (21:14)
[2020-02-15] MEDS: Atorvastatin Calcium 40 MG TAB PO SCH (21:14)
[2020-02-15] MEDS: Oseltamivir 6 MG/ML ORAL SUSP PO SCH (21:29)
[2020-02-15 23:14] LABS: Actual Bicarbonate (HCO3a) 26.8 mEq/L (22-28); Base Excess (BEa) 2.4 mEq/L (-2.0 to +3.0); CO2 Tension 40.5 mmHg (35.0-45.0); Calcium, Ionized (arterial) 1.23 mmol/L (1.12-1.30); Carboxyhemoglobin (COHb) 0.1 gm% (0.0-3.0); Hemoglobin (Hb) 12.2 g/dL (12.0-16.0); O2 Tension (PaO2), arterial 79.4 mmHg (> 80.0); pH, Arterial 7.44 (7.35-7.45)
[2020-02-15 23:23] LABS: ALV-art Gradient 126.655 mmHg (0-20); Puncture Site RRA
[2020-02-16] MEDS: Scopolamine 1.5 mg/72 hour Patch TD SCH (00:15)
[2020-02-16] MEDS: Clindamycin 150 MG CAP PO SCH ×2 (05:37→15:51)
[2020-02-16] MEDS: Furosemide 40 MG/4 ML VIAL SLOW IVP SCH ×2 (05:37→15:51)
[2020-02-16] MEDS: Levothyroxine Sodium 50 MCG TAB PO SCH (05:38)
[2020-02-16] MEDS: Acetaminophen 325 MG TAB PO PRN ×2 (05:45→21:47)
[2020-02-16] MEDS ORDERED: Ondansetron PF 4 MG/2 ML Vial IVP PRN (08:55)
[2020-02-16] MEDS ORDERED: Bisacodyl 10 MG SUPP PR PRN (08:55)
[2020-02-16] MEDS ORDERED: Metoclopramide HCl 10 MG/2 ML VIAL IVP PRN (08:55)
[2020-02-16] MEDS ORDERED: hydrALAZINE 20 MG/ML VIAL SLOW IVP PRN (08:55)
[2020-02-16] MEDS ORDERED: Loperamide HCl 2 MG CAP PO PRN (08:55)
[2020-02-16] MEDS ORDERED: diphenhydrAMINE 50 MG/ML VIAL IVP PRN (08:55)
[2020-02-16] MEDS ORDERED: Acetaminophen 650 MG Suppository PR PRN (08:55)
[2020-02-16] MEDS ORDERED: Sodium Chloride 0.65% Nasal 44 ML BOT EA NARE PRN (08:55)
[2020-02-16] MEDS ORDERED: Diabetic Tussin 200 MG/10 ML UDCUP PO PRN (08:55)
[2020-02-16] MEDS ORDERED: Cepastat Lozenges 1 LOZ PO PRN (08:55)
[2020-02-16] MEDS: Lisinopril 20 MG TAB PO SCH (09:08)
[2020-02-16] MEDS: Aspirin 81 mg Enteric Coated Tablet PO SCH (09:08)
[2020-02-16] MEDS: Famotidine/PF 20 mg/2ml Vial SLOW IVP SCH (09:08)
[2020-02-16] MEDS: Amlodipine 10 MG TAB PO SCH (09:08)
[2020-02-16] MEDS: Multivit, Therapeutic 1 TAB PO SCH (09:08)
--- NOTE | 2020-02-16 12:24 | PDOC.HOSPP ---
- Subjective Encounter Date: 02/16/20 Encounter Time: 10:00 Subjective: Patient seen and examined bedside today, last night patient was short of breath, patient had volume overload, patient was given Lasix and after that patient felt better, this morning patient has A. fib with RVR, - Objective Vital Signs & Weight: Vital Signs (12 hours) Temp Pulse Resp BP BP Pulse Ox 02/16/20 09:08 74 160/80 H 02/16/20 08:00 100 02/16/20 07:20 74 22 H 100 02/16/20 06:15 99.0 F 82 18 160/91 H 02/16/20 05:53 20 02/16/20 05:45 99.9 F H 02/16/20 05:38 99.7 F H 82 160/91 H 100 02/16/20 02:16 99.5 F 82 18 156/85 H 100 Weight Admit Weight 136 lb 11.2 oz Weight 136 lb 11.2 oz I&O: 02/15/20 02/16/20 02/17/20 06:59 06:59 06:59 Intake Total 2493 801 267 Output Total 400 1500 Balance 7630 -851 267 Result Diagrams: 02/15/20 07:11 02/15/20 07:11 Radiology Reviewed by me: Yes EKG Reviewed by me: Yes Hospitalist ROS - Review of Systems ROS unobtainable: due to mental status - Medication Medications: Active Medications Generic Name Dose Route Start Last Admin Trade Name Freq PRN Reason Stop Dose Admin Acetaminophen 650 mg 02/13/20 21:40 02/16/20 05:45 Acetaminophen 325 Mg Tab PO 650 mg Q4H PRN Administration Headache/Fever/Mild Pain (1-3) Albuterol/Ipratropium 3 ml 02/13/20 15:05 02/16/20 07:20 Ipratropium/Albuterol Sulfate 3 Ml Neb NEB 3 ml [id number] WAN Administration Amlodipine Besylate 10 mg 02/13/20 09:00 02/16/20 09:08 Amlodipine 10 Mg Tab PO 10 mg DAILY WAN Administration Aspirin 81 mg 02/14/20 09:00 02/16/20 09:08 Aspirin 81 Mg Enteric Coated Tablet PO 81 mg DAILY WAN Administration Atorvastatin Calcium 40 mg 02/13/20 21:00 02/15/20 21:14 Atorvastatin Calcium 40 Mg Tab PO 40 mg HS WAN Administration Clindamycin HCl 300 mg 02/14/20 07:00 02/16/20 05:37 Clindamycin 150 Mg Cap PO 300 mg Q8H WAN Administration Diltiazem HCl 30 mg 02/16/20 12:00 02/16/20 11:33 Diltiazem Hcl 30 Mg Tablet PO 30 mg Q6HR WAN Administration Donepezil HCl 10 mg 02/13/20 21:00 02/15/20 21:14 Donepezil Hcl 10 Mg Tab PO 10 mg HS WAN Administration Famotidine 40 mg 02/14/20 09:00 02/16/20 09:08 Famotidine/Pf 20 Mg/2ml Vial SLOW IVP 40 mg DAILY WAN Administration Furosemide 40 mg 02/16/20 06:00 02/16/20 05:37 Furosemide 40 Mg/4 Ml Vial SLOW IVP 40 mg 0600,1400 WAN Administration Levothyroxine Sodium 50 mcg 02/15/20 06:00 02/16/20 05:38 Levothyroxine Sodium 50 Mcg Tab PO 50 mcg 0600 WAN Administration Lisinopril 40 mg 02/13/20 09:00 02/16/20 09:08 Lisinopril 20 Mg Tab PO 40 mg DAILY WAN Administration Multivitamins 1 tab 02/13/20 09:00 02/16/20 09:08 Multivit, Therapeutic 1 Tab PO 1 tab DAILY WAN Administration Oseltamivir Phosphate 75 mg 02/13/20 21:00 02/15/20 21:29 Oseltamivir 6 Mg/Ml Oral Susp PO 75 mg Q24HR WAN Administration Phenytoin Sodium 200 mg 02/15/20 21:00 02/16/20 10:18 Phenytoin 100 Mg/4 Ml Udcup PO 200 mg BID WAN Administration Scopolamine 1.5 mg 02/15/20 23:00 02/16/20 00:15 Scopolamine 1.5 Mg/72 Hour Patch TD 1.5 mg Q3D WAN Administration Sodium Chloride 10 ml 02/13/20 09:00 02/16/20 09:08 Flush - Normal Saline 10 Ml Syringe IVF 10 ml Q12HR WAN Administration - Exam General Appearance: NAD, awake alert Eye: PERRL, anicteric sclera ENT: normocephalic atraumatic, no oropharyngeal lesions Neck: supple, symmetric, no JVD, no thyromegaly Heart: no gallops, no rubs, irregular Respiratory: rales, wheezes Gastrointestinal: soft, non-tender, non-distended, normal bowel sounds Extremities: no cyanosis, no clubbing, no edema Skin: normal turgor, no lesions Neurological: no focal deficits Musculoskeletal: normal tone, normal strength Psychiatric: normal affect, normal behavior Hosp A/P (1) Acute CHF Code(s): I50.9 - HEART FAILURE, UNSPECIFIED Status: Acute Qualifiers: Heart failure type: diastolic Qualified Code(s): I50.31 - Acute diastolic (congestive) heart failure (2) Atrial fibrillation with rapid ventricular response Code(s): I48.91 - UNSPECIFIED ATRIAL FIBRILLATION Status: Acute (3) Aspiration pneumonia Code(s): J69.0 - PNEUMONITIS DUE TO INHALATION OF FOOD AND VOMIT Status: Acute Qualifiers: Aspiration pneumonia type: due to regurgitated food Laterality: bilateral (4) Influenza B Code(s): J10.1 - FLU DUE TO OTH IDENT INFLUENZA VIRUS W OTH RESP MANIFEST Status: Acute (5) CAD (coronary artery disease) Code(s): I25.10 - ATHSCL HEART DISEASE OF [place] CORONARY ARTERY W/O ANG PCTRS Status: Chronic Qualifiers: Coronary Disease-Associated Artery/Lesion type: [place] artery [place] vs. transplanted heart: [place] heart Associated angina: with stable angina Qualified Code(s): I25.118 - Atherosclerotic heart disease of [place] coronary artery with other forms of angina pectoris (6) Dyslipidemia Code(s): E78.5 - HYPERLIPIDEMIA, UNSPECIFIED Status: Chronic (7) Dysphagia Code(s): R13.10 - DYSPHAGIA, UNSPECIFIED Status: Chronic Qualifiers: Dysphagia type: oropharyngeal phase Qualified Code(s): R13.12 - Dysphagia, oropharyngeal phase (8) HTN (hypertension) Code(s): I10 - ESSENTIAL (PRIMARY) HYPERTENSION Status: Chronic Qualifiers: Hypertension type: essential hypertension Qualified Code(s): I10 - Essential (primary) hypertension (9) Hemiparesis and other late effects of cerebrovascular accident Code(s): I69.359 - HEMIPLGA FOLLOWING CEREBRAL INFARCTION AFFECTING UNSP SIDE; I69.398 - OTHER SEQUELAE OF CEREBRAL INFARCTION Status: Chronic (10) Hypothyroidism Code(s): E03.9 - HYPOTHYROIDISM, UNSPECIFIED Status: Chronic Qualifiers: Hypothyroidism type: acquired Qualified Code(s): E03.9 - Hypothyroidism, unspecified (11) Seizure disorder Code(s): G40.909 - EPILEPSY, UNSP, NOT INTRACTABLE, WITHOUT STATUS EPILEPTICUS Status: Chronic - Plan old records reviewed/req, plan discussed w/ family, continue antibiotics, respiratory therapy Continue IV Lasix Echocardiography pending Start Cardizem 30 mg p.o. every 6 hourly We will cancel her plan for discharge today, will monitor for another 24 to 48 hours Medication reviewed and continue provide symptomatic and supportive care
[2020-02-16] MEDS ORDERED: Diltiazem 125 MG in Sodium Chloride 0.9% 100 ML IVPB SCH (15:00)
--- NOTE | 2020-02-16 16:17 | EKG ---
Test Reason : Blood Pressure : / mmHG Vent. Rate : 074 BPM Atrial Rate : 074 BPM P-R Int : 144 ms QRS Dur : 088 ms QT Int : 404 ms P-R-T Axes : -04 -03 100 degrees QTc Int : 448 ms Normal sinus rhythm T wave abnormality, consider lateral ischemia Abnormal ECG Confirmed by STEPHANE CHAN M.D. ([id number]), school photograph editor ISADORA GARCIA ([id number]) on 02/16/2020 4:17:13 PM Referred By: Confirmed By:STEPHANE CHAN M.D.
[2020-02-16] MEDS: Donepezil HCl 10 MG TAB PO SCH (21:38)
[2020-02-16] MEDS: Atorvastatin Calcium 40 MG TAB PO SCH (21:38)
[2020-02-16 22:45] LABS: #Eosinphils 0.1 thou/uL (0.0-0.7); #Lymphocytes 1.1 thou/uL (1.20-3.40); #Neutrophils 6.3 thou/uL (1.40-6.50); %Basophils 0.3 % (0.0-1.0); %Eosinophils 1.7 % (0.0-10.0); %Lymphocytes 12.7 % (21.0-51.0); %Monocytes 11.5 % (0.0-10.0); %Neutrophils 73.7 % (42.0-75.0); Hemoglobin 12.4 g/dL (12.0-16.0); Mean Corpuscular HGB CONC 30.9 g/dL (32.0-36.0); Mean Corpuscular Hemoglobin 29.8 pg (27.0-31.0); Mean Corpuscular Volume 96.6 fL (78.0-98.0); Mean Platelet Volume 10.3 fL (7.4-10.4); Platelet Count 187 thou/uL (130-400); RBC Distribution Width 11.7 % (11.5-14.5); Red Blood Cell (RBC) Count 4.15 mill/uL (4.20-5.40); White Blood Cell (WBC) Count 8.5 thou/uL (4.8-10.8)
[2020-02-16 23:06] LABS: Anion Gap 16 mmol/L (10-20); BUN (Urea Nitrogen) 16 mg/dL (9.8-20.1); Calc. Creatinine Clearance 54 mL/min (70-130); Calcium 9.5 mg/dL (7.8-10.44); Carbon Dioxide 30 mmol/L (23-31); Chloride 101 mmol/L (98-107); Estimated GFR-MDRD 52; Glucose 135 mg/dL (80-115); Magnesium 1.7 mg/dL (1.6-2.6); Potassium 3.3 mmol/L (3.5-5.1); Sodium 144 mmol/L (136-145)
[2020-02-17] MEDS: Clindamycin 150 MG CAP PO SCH ×3 (01:00→14:52)
[2020-02-17] MEDS: Oseltamivir 6 MG/ML ORAL SUSP PO SCH ×2 (01:01→21:44)
[2020-02-17] MEDS: Furosemide 40 MG/4 ML VIAL SLOW IVP SCH ×2 (06:31→14:30)
[2020-02-17] MEDS: Levothyroxine Sodium 50 MCG TAB PO SCH (06:31)
[2020-02-17] MEDS: Acetaminophen 325 MG TAB PO PRN ×3 (06:40→21:43)
[2020-02-17] MEDS ORDERED: Potassium Chloride 20 MEQ TAB PO SCH (08:30)
[2020-02-17] MEDS: Lisinopril 20 MG TAB PO SCH (08:53)
[2020-02-17] MEDS: Famotidine/PF 20 mg/2ml Vial SLOW IVP SCH (08:53)
[2020-02-17] MEDS: Multivit, Therapeutic 1 TAB PO SCH (08:53)
[2020-02-17] MEDS: Amlodipine 10 MG TAB PO SCH (08:53)
[2020-02-17] MEDS: Aspirin 81 mg Enteric Coated Tablet PO SCH (08:53)
--- NOTE | 2020-02-17 11:26 | PDOC.HOSPP ---
- Subjective Encounter Date: 02/17/20 Encounter Time: 08:00 Subjective: Patient seen and examined. No overnight events, today her heart rate is under control, - Objective Vital Signs & Weight: Vital Signs (12 hours) Temp Pulse Resp BP Pulse Ox 02/17/20 07:50 100 02/17/20 07:42 99.1 F 75 22 H 142/65 H 100 02/17/20 06:36 100 02/17/20 06:35 72 16 02/17/20 04:00 98.2 F 72 18 140/78 100 02/17/20 01:10 65 16 122/66 100 Weight Admit Weight 136 lb 11.2 oz Weight 142 lb 4 oz I&O: 02/16/20 02/17/20 02/18/20 06:59 06:59 06:59 Intake Total 801 1911 360 Output Total 1500 1700 Balance -699 211 360 Result Diagrams: 02/16/20 22:29 02/16/20 22:29 Hospitalist ROS - Review of Systems ROS unobtainable: due to mental status - Medication Medications: Active Medications Generic Name Dose Route Start Last Admin Trade Name Freq PRN Reason Stop Dose Admin Acetaminophen 650 mg 02/13/20 21:40 02/17/20 06:40 Acetaminophen 325 Mg Tab PO 650 mg Q4H PRN Administration Headache/Fever/Mild Pain (1-3) Albuterol/Ipratropium 3 ml 02/13/20 15:05 02/17/20 06:35 Ipratropium/Albuterol Sulfate 3 Ml Neb NEB 3 ml [id number] WAN Administration Amlodipine Besylate 10 mg 02/13/20 09:00 02/17/20 08:53 Amlodipine 10 Mg Tab PO 10 mg DAILY WAN Administration Aspirin 81 mg 02/14/20 09:00 02/17/20 08:53 Aspirin 81 Mg Enteric Coated Tablet PO 81 mg DAILY WAN Administration Atorvastatin Calcium 40 mg 02/13/20 21:00 02/16/20 21:38 Atorvastatin Calcium 40 Mg Tab PO 40 mg HS WAN Administration Clindamycin HCl 300 mg 02/14/20 07:00 02/17/20 06:40 Clindamycin 150 Mg Cap PO 300 mg Q8H WAN Administration Diltiazem HCl 30 mg 02/16/20 12:00 02/17/20 06:31 Diltiazem Hcl 30 Mg Tablet PO 30 mg Q6HR WAN Administration Donepezil HCl 10 mg 02/13/20 21:00 02/16/20 21:38 Donepezil Hcl 10 Mg Tab PO 10 mg HS WAN Administration Famotidine 40 mg 02/14/20 09:00 02/17/20 08:53 Famotidine/Pf 20 Mg/2ml Vial SLOW IVP 40 mg DAILY WAN Administration Furosemide 40 mg 02/16/20 06:00 02/17/20 06:31 Furosemide 40 Mg/4 Ml Vial SLOW IVP 40 mg 0600,1400 WAN Administration Diltiazem HCl 125 mg/ Sodium 125 mls @ 5 mls/hr 02/16/20 15:00 02/16/20 16:11 Chloride IVPB 125 mls INF WAN Administration Protocol Levothyroxine Sodium 50 mcg 02/15/20 06:00 02/17/20 06:31 Levothyroxine Sodium 50 Mcg Tab PO 50 mcg 0600 WAN Administration Lisinopril 40 mg 02/13/20 09:00 02/17/20 08:53 Lisinopril 20 Mg Tab PO 40 mg DAILY WAN Administration Multivitamins 1 tab 02/13/20 09:00 02/17/20 08:53 Multivit, Therapeutic 1 Tab PO 1 tab DAILY WAN Administration Oseltamivir Phosphate 75 mg 02/13/20 21:00 02/17/20 01:01 Oseltamivir 6 Mg/Ml Oral Susp PO 75 mg Q24HR WAN Administration Phenytoin Sodium 200 mg 02/15/20 21:00 02/17/20 08:53 Phenytoin 100 Mg/4 Ml Udcup PO 200 mg BID WAN Administration Potassium Chloride 40 meq 02/17/20 08:30 02/17/20 08:53 Potassium Chloride 20 Meq Tab PO 02/17/20 12:00 40 meq NOW WAN Administration Scopolamine 1.5 mg 02/15/20 23:00 02/16/20 00:15 Scopolamine 1.5 Mg/72 Hour Patch TD 1.5 mg Q3D WAN Administration Sodium Chloride 10 ml 02/13/20 09:00 02/17/20 08:53 Flush - Normal Saline 10 Ml Syringe IVF 10 ml Q12HR WAN Administration - Exam General Appearance: NAD, awake alert Eye: PERRL, anicteric sclera ENT: normocephalic atraumatic, no oropharyngeal lesions Neck: supple, symmetric, no JVD, no thyromegaly Heart: no murmur, no gallops, no rubs Respiratory: no wheezes, no rales, no ronchi Gastrointestinal: soft, non-tender, non-distended, normal bowel sounds Gastrointestinal - other findings: PEG tube in place Extremities: no clubbing, no edema Skin: normal turgor, no lesions Neurological: no new deficit Musculoskeletal: normal tone, normal strength Psychiatric: normal affect, normal behavior Hosp A/P (1) Acute CHF Code(s): I50.9 - HEART FAILURE, UNSPECIFIED Status: Acute Qualifiers: Heart failure type: diastolic Qualified Code(s): I50.31 - Acute diastolic (congestive) heart failure (2) Atrial fibrillation with rapid ventricular response Code(s): I48.91 - UNSPECIFIED ATRIAL FIBRILLATION Status: Acute (3) Aspiration pneumonia Code(s): J69.0 - PNEUMONITIS DUE TO INHALATION OF FOOD AND VOMIT Status: Acute Qualifiers: Aspiration pneumonia type: due to regurgitated food Laterality: bilateral (4) Influenza B Code(s): J10.1 - FLU DUE TO OTH IDENT INFLUENZA VIRUS W OTH RESP MANIFEST Status: Acute (5) CAD (coronary artery disease) Code(s): I25.10 - ATHSCL HEART DISEASE OF [place] CORONARY ARTERY W/O ANG PCTRS Status: Chronic Qualifiers: Coronary Disease-Associated Artery/Lesion type: [place] artery [place] vs. transplanted heart: [place] heart Associated angina: with stable angina Qualified Code(s): I25.118 - Atherosclerotic heart disease of [place] coronary artery with other forms of angina pectoris (6) Dyslipidemia Code(s): E78.5 - HYPERLIPIDEMIA, UNSPECIFIED Status: Chronic (7) Dysphagia Code(s): R13.10 - DYSPHAGIA, UNSPECIFIED Status: Chronic Qualifiers: Dysphagia type: oropharyngeal phase Qualified Code(s): R13.12 - Dysphagia, oropharyngeal phase (8) HTN (hypertension) Code(s): I10 - ESSENTIAL (PRIMARY) HYPERTENSION Status: Chronic Qualifiers: Hypertension type: essential hypertension Qualified Code(s): I10 - Essential (primary) hypertension (9) Hemiparesis and other late effects of cerebrovascular accident Code(s): I69.359 - HEMIPLGA FOLLOWING CEREBRAL INFARCTION AFFECTING UNSP SIDE; I69.398 - OTHER SEQUELAE OF CEREBRAL INFARCTION Status: Chronic (10) Hypothyroidism Code(s): E03.9 - HYPOTHYROIDISM, UNSPECIFIED Status: Chronic Qualifiers: Hypothyroidism type: acquired Qualified Code(s): E03.9 - Hypothyroidism, unspecified (11) Seizure disorder Code(s): G40.909 - EPILEPSY, UNSP, NOT INTRACTABLE, WITHOUT STATUS EPILEPTICUS Status: Chronic - Plan old records reviewed/req, plan discussed w/ family Discontinue Cardizem drip and continue with the p.o. Cardizem and monitor on telemetry Continue Lasix Discussed with the family member on phone and updated about plan of care Discontinue oxygen if not needed Expecting her discharge tomorrow to her sister's home Medication reviewed and continue provide symptomatic and supportive care
[2020-02-17] MEDS: Atorvastatin Calcium 40 MG TAB PO SCH (21:44)
[2020-02-17] MEDS: Donepezil HCl 10 MG TAB PO SCH (21:44)
[2020-02-18] MEDS: Clindamycin 150 MG CAP PO SCH ×3 (01:58→15:31)
[2020-02-18] MEDS: Furosemide 40 MG/4 ML VIAL SLOW IVP SCH ×2 (05:49→14:02)
[2020-02-18] MEDS: Levothyroxine Sodium 50 MCG TAB PO SCH (05:49)
[2020-02-18] MEDS: Multivit, Therapeutic 1 TAB PO SCH (09:36)
[2020-02-18] MEDS: Lisinopril 20 MG TAB PO SCH (09:36)
[2020-02-18] MEDS: Famotidine/PF 20 mg/2ml Vial SLOW IVP SCH (09:36)
[2020-02-18] MEDS: Aspirin 81 mg Enteric Coated Tablet PO SCH (09:36)
[2020-02-18] MEDS: Amlodipine 10 MG TAB PO SCH (09:36)
--- NOTE | 2020-02-18 11:50 | PDOC.HOSPP ---
- Subjective Encounter Date: 02/18/20 Encounter Time: 08:45 Subjective: Patient seen and examined. This morning patient was requiring more than normal oxygen , no overnight events - Objective Vital Signs & Weight: Vital Signs (12 hours) Temp Pulse Resp BP BP Pulse Ox 02/18/20 09:36 74 02/18/20 08:00 98.3 F 74 20 142/85 H 90 L 02/18/20 07:39 80 18 94 L 02/18/20 04:09 99.6 F 70 14 126/70 100 02/18/20 01:18 98 02/17/20 23:49 98.7 F 76 28 H 127/64 93 L Weight Admit Weight 136 lb 11.2 oz Weight 142 lb 4 oz I&O: 02/17/20 02/18/20 02/19/20 06:59 06:59 06:59 Intake Total 1911 2664 302 Output Total 1700 2475 Balance 211 189 302 Result Diagrams: 02/16/20 22:29 02/16/20 22:29 EKG Reviewed by me: Yes Hospitalist ROS - Review of Systems ROS unobtainable: due to mental status - Medication Medications: Active Medications Generic Name Dose Route Start Last Admin Trade Name Freq PRN Reason Stop Dose Admin Acetaminophen 650 mg 02/13/20 21:40 02/17/20 21:43 Acetaminophen 325 Mg Tab PO 650 mg Q4H PRN Administration Headache/Fever/Mild Pain (1-3) Albuterol/Ipratropium 3 ml 02/13/20 15:05 02/18/20 07:39 Ipratropium/Albuterol Sulfate 3 Ml Neb NEB 3 ml [id number] WAN Administration Amlodipine Besylate 10 mg 02/13/20 09:00 02/18/20 09:36 Amlodipine 10 Mg Tab PO 10 mg DAILY WAN Administration Aspirin 81 mg 02/14/20 09:00 02/18/20 09:36 Aspirin 81 Mg Enteric Coated Tablet PO 81 mg DAILY WAN Administration Atorvastatin Calcium 40 mg 02/13/20 21:00 02/17/20 21:44 Atorvastatin Calcium 40 Mg Tab PO 40 mg HS WAN Administration Clindamycin HCl 300 mg 02/14/20 07:00 02/18/20 05:51 Clindamycin 150 Mg Cap PO 300 mg Q8H WAN Administration Diltiazem HCl 30 mg 02/16/20 12:00 02/18/20 05:49 Diltiazem Hcl 30 Mg Tablet PO 30 mg Q6HR WAN Administration Donepezil HCl 10 mg 02/13/20 21:00 02/17/20 21:44 Donepezil Hcl 10 Mg Tab PO 10 mg HS WAN Administration Famotidine 40 mg 02/14/20 09:00 02/18/20 09:36 Famotidine/Pf 20 Mg/2ml Vial SLOW IVP 40 mg DAILY WAN Administration Furosemide 40 mg 02/16/20 06:00 02/18/20 05:49 Furosemide 40 Mg/4 Ml Vial SLOW IVP 40 mg 0600,1400 WAN Administration Levothyroxine Sodium 50 mcg 02/15/20 06:00 02/18/20 05:49 Levothyroxine Sodium 50 Mcg Tab PO 50 mcg 0600 WAN Administration Lisinopril 40 mg 02/13/20 09:00 02/18/20 09:36 Lisinopril 20 Mg Tab PO 40 mg DAILY WAN Administration Multivitamins 1 tab 02/13/20 09:00 02/18/20 09:36 Multivit, Therapeutic 1 Tab PO 1 tab DAILY WAN Administration Oseltamivir Phosphate 75 mg 02/13/20 21:00 02/17/20 21:44 Oseltamivir 6 Mg/Ml Oral Susp PO 75 mg Q24HR WAN Administration Phenytoin Sodium 200 mg 02/15/20 21:00 02/18/20 09:35 Phenytoin 100 Mg/4 Ml Udcup PO 200 mg BID WAN Administration Scopolamine 1.5 mg 02/15/20 23:00 02/16/20 00:15 Scopolamine 1.5 Mg/72 Hour Patch TD 1.5 mg Q3D WAN Administration Sodium Chloride 10 ml 02/13/20 09:00 02/18/20 09:36 Flush - Normal Saline 10 Ml Syringe IVF 10 ml Q12HR WAN Administration - Exam General Appearance: NAD, awake alert Eye: PERRL, anicteric sclera ENT: normocephalic atraumatic, no oropharyngeal lesions Neck: supple, symmetric, no JVD Heart: no gallops, no rubs, irregular Respiratory: no rales, no ronchi, wheezes Gastrointestinal: soft, non-tender, non-distended, normal bowel sounds Gastrointestinal - other findings: PEG tube in place Extremities: no clubbing, no edema Skin: normal turgor, no lesions Neurological: no new deficit Musculoskeletal: normal tone, normal strength Psychiatric: normal affect, normal behavior Hosp A/P (1) Acute CHF Code(s): I50.9 - HEART FAILURE, UNSPECIFIED Status: Acute Qualifiers: Heart failure type: diastolic Qualified Code(s): I50.31 - Acute diastolic (congestive) heart failure (2) Atrial fibrillation with rapid ventricular response Code(s): I48.91 - UNSPECIFIED ATRIAL FIBRILLATION Status: Acute (3) Aspiration pneumonia Code(s): J69.0 - PNEUMONITIS DUE TO INHALATION OF FOOD AND VOMIT Status: Acute Qualifiers: Aspiration pneumonia type: due to regurgitated food Laterality: bilateral (4) Influenza B Code(s): J10.1 - FLU DUE TO OTH IDENT INFLUENZA VIRUS W OTH RESP MANIFEST Status: Acute (5) CAD (coronary artery disease) Code(s): I25.10 - ATHSCL HEART DISEASE OF [place] CORONARY ARTERY W/O ANG PCTRS Status: Chronic Qualifiers: Coronary Disease-Associated Artery/Lesion type: [place] artery [place] vs. transplanted heart: [place] heart Associated angina: with stable angina Qualified Code(s): I25.118 - Atherosclerotic heart disease of [place] coronary artery with other forms of angina pectoris (6) Dyslipidemia Code(s): E78.5 - HYPERLIPIDEMIA, UNSPECIFIED Status: Chronic (7) Dysphagia Code(s): R13.10 - DYSPHAGIA, UNSPECIFIED Status: Chronic Qualifiers: Dysphagia type: oropharyngeal phase Qualified Code(s): R13.12 - Dysphagia, oropharyngeal phase (8) HTN (hypertension) Code(s): I10 - ESSENTIAL (PRIMARY) HYPERTENSION Status: Chronic Qualifiers: Hypertension type: essential hypertension Qualified Code(s): I10 - Essential (primary) hypertension (9) Hemiparesis and other late effects of cerebrovascular accident Code(s): I69.359 - HEMIPLGA FOLLOWING CEREBRAL INFARCTION AFFECTING UNSP SIDE; I69.398 - OTHER SEQUELAE OF CEREBRAL INFARCTION Status: Chronic (10) Hypothyroidism Code(s): E03.9 - HYPOTHYROIDISM, UNSPECIFIED Status: Chronic Qualifiers: Hypothyroidism type: acquired Qualified Code(s): E03.9 - Hypothyroidism, unspecified (11) Seizure disorder Code(s): G40.909 - EPILEPSY, UNSP, NOT INTRACTABLE, WITHOUT STATUS EPILEPTICUS Status: Chronic - Plan old records reviewed/req, continue antibiotics, respiratory therapy Continue p.o. Cardizem, heart rate controlled Continue IV Lasix Tomorrow we will repeat labs Wean off oxygen as tolerated We will consider discharge when more stable, possibly tomorrow Transfer to medical floor
--- NOTE | 2020-02-18 12:34 | PQF ---
CLINICAL DOCUMENTATION CLARIFICATION FORM: Dear Dr. Cramer Date02/18/2020 4476 Please exercise your independent, professional judgment in responding to the clarification form. Clinical indicators are provided on the bottom of this form for your review. Please check appropriate box(es): [ ] Acute Respiratory Failure: [ ] with Hypoxia [ ] with Hypercapnia [ x] Acute On Chronic Respiratory Failure: [ x ] with Hypoxia [ ] with Hypercapnia [ ] Acute Respiratory Failure due to: (etiology) [ ] Chronic Respiratory Failure only [ ] with Hypoxia [ ] with Hypercapnia [ ] Hypoxia [ ] Other diagnosis [ ] Unable to determine In addition, please specify: Present on Admission (POA): [x ] Yes [ ] No [ ] Unable to determine For continuity of documentation, please document condition throughout progress notes and discharge summary. Thank You. To be completed by CDI/Coding staff for physician review: CLINICAL INDICATORS - SIGNS / SYMPTOMS / LABS / RESULTS AND LOCATION IN MR 96% 2l/NC, Resp 27, transfer for SOB, pt presented for difficulty breathing, pt was Flu B POS. Patient does not wear oxygen at home ( ED report/ 02/12) Notified by RN that patient tachypnea and crackles. O2 sat 92% on 2l/NC. CXR ordered and O2 to be increased to 4L by NC (Event note/ [place]) 02/14 Last night patient was short of breath, patient had volume overload, patient was given Lasix and after that patient felt better, this morning patient has A. fib with RVR. ( PN/ Peg) 02/15 RISK FACTOR / RESULTS AND LOCATION IN MR DX : Aspiration Pneumonia, Acute Diastolic CHF, Influenza B ( PN/ Peg) 02/15 TREATMENTS / RESULTS AND LOCATION IN MR Oxygen supplementation ( 02/12- present ) Lasix IV ( 02/15 PRESENT) Pulmonology consult ( [place]/02/12) Acute Respiratory Failure: ABG pH < 7.35 or > 7.45; Decreased oxygen saturation (<90% room air or < 95% on oxygen); PCO2 > 50 mm Hg; PO2 < 60 mm Hg; Labored or rapid respirations ARDS: Dx Criteria [[place] ARDS]: Respiratory symptoms within one week of a known clinical insult (e.g. shock, infection, surgery, trauma) Bilateral opacities in CXR/Chest CT not due to CHF or fluid THANK YOU! CDS Signature: Ana Umana RN Phone #: [phone] Date: 02/18/2020 GRISELDA
--- NOTE | 2020-02-18 15:29 | PDOC.PALCO ---
Palliative Care Consult - Consult Details Requesting Physician: Dr Gold Reason for Consult: goals of care, complex decision-making - Pertinent HPI Patient is a 59 year old female who went to her Gi physician for evaluation of recently placed PEG. After appointment she became short of breath, known to have chronic dysphagia and weak cough. She presented to [facility] Emergency room for further evaluation and noted to have a fever. She was given abx, stero ids,and supplemental O2. Patient lives with her sister who is her primary caregiver secondary to CVA and residual effects. Last coronavirus test was one week prior to presentation to emergency room. In er was noted to be flu positive with bilateral infiltrates, transferred to [facility] for higher level of care. Totally dependent for all ADL's - Pertinent PMH CVA, Myocardial infarction, HDL, CAD, Seizures - Social History Smoking Status: Never smoker Smoking: no tobacco exposure Alcohol Use: none Drug Use History: none Living Situation: other (lives with sister) - Allergies Allergies/Adverse Reactions: Allergies Allergy/AdvReac Type Severity Reaction Status Date / Time No Known Allergies Allergy Verified 02/08/20 11:46 - Subjective Awake, aphagic. Weak wet cough noted, unable to participate in exam - ROS Non Response: due to mental status - Objective Vital Signs: Vital Signs - Most Recent Temp Pulse Resp BP Pulse Ox 98.6 F 79 14 142/68 H 99 02/18/20 12:00 02/18/20 13:48 02/18/20 13:48 02/18/20 12:00 02/18/20 13:48 Palliative Performance Scale: 30 - Physical Exam Constitutional: ill appearing HEENT: poor dentition Respiratory: cough, diminished lung sound Deviation from normal: mildly adventicious upper right Cardiovascular: diminished peripheral pulses, irregular Gastrointestinal: soft, non-tender Deviation from normal: PEG Genitourinary: dover catheter Musculoskeletal: no cyanosis, diffuse muscle atrophy, muscle wasting Deviation from normal: contractures to right hand, toes Skin: cap refill <2 seconds, fragile Psychiatric: flat affect Deviation from normal: Inable to determine orientation, aphagic - Problem List (1) Palliative care encounter Code(s): Z51.5 - ENCOUNTER FOR PALLIATIVE CARE Current Visit: Yes Status: Acute (2) Aspiration pneumonia Code(s): J69.0 - PNEUMONITIS DUE TO INHALATION OF FOOD AND VOMIT Current Visit: Yes Status: Acute Qualifiers: Aspiration pneumonia type: due to regurgitated food Laterality: bilateral (3) Atrial fibrillation with rapid ventricular response Code(s): I48.91 - UNSPECIFIED ATRIAL FIBRILLATION Current Visit: Yes Status: Acute (4) Dysphagia Code(s): R13.10 - DYSPHAGIA, UNSPECIFIED Current Visit: Yes Status: Chronic Qualifiers: Dysphagia type: oropharyngeal phase Qualified Code(s): R13.12 - Dysphagia, oropharyngeal phase (5) Hemiparesis and other late effects of cerebrovascular accident Code(s): I69.359 - HEM[place] FOLLOWING CEREBRAL INFARCTION AFFECTING UNSP SIDE; I69.398 - OTHER SEQUELAE OF CEREBRAL INFARCTION Current Visit: Yes Status: Chronic (6) Seizure disorder Code(s): G40.909 - EPILEPSY, UNSP, NOT INTRACTABLE, WITHOUT STATUS EPILEPTICUS Current Visit: Yes Status: Chronic - Plan/Recommendations Plan: Patient continues with dysphagia and significant aspiration risk. Confirmed DNAR gaston Sister, who is MPOA, is hopeful for transition home with [facility]. Will further discuss OOHDNAR Palliative care will also introduce consideration of eventual transition to hospice if continued events of aspiration pneumonia to mange symptoms in home setting. Please also refer to Palliative Care notes in note section. [40] minutes spent on this encounter with >50% of the time in counseling and coordination of care. Thank you for this very appropriate consult.
[2020-02-18] MEDS: Oseltamivir 6 MG/ML ORAL SUSP PO SCH (20:59)
[2020-02-18] MEDS: Atorvastatin Calcium 40 MG TAB PO SCH (21:00)
[2020-02-18] MEDS: Donepezil HCl 10 MG TAB PO SCH (21:00)
[2020-02-19] MEDS: Clindamycin 150 MG CAP PO SCH ×2 (00:07→05:29)
[2020-02-19] MEDS: Scopolamine 1.5 mg/72 hour Patch TD SCH (00:08)
[2020-02-19] MEDS: Furosemide 40 MG/4 ML VIAL SLOW IVP SCH ×2 (05:29→17:49)
[2020-02-19] MEDS: Levothyroxine Sodium 50 MCG TAB PO SCH (05:29)
[2020-02-19 06:32] LABS: #Basophils 0.1 thou/uL (0.0-0.2); #Eosinphils 0.3 thou/uL (0.0-0.7); #Lymphocytes 1.6 thou/uL (1.20-3.40); #Monocytes 0.9 thou/uL (0.11-0.59); #Neutrophils 3.9 thou/uL (1.40-6.50); %Basophils 0.8 % (0.0-1.0); %Eosinophils 4.3 % (0.0-10.0); %Lymphocytes 24.2 % (21.0-51.0); %Monocytes 13.6 % (0.0-10.0); %Neutrophils 57.1 % (42.0-75.0); Mean Corpuscular HGB CONC 32.9 g/dL (32.0-36.0); Mean Corpuscular Hemoglobin 31.5 pg (27.0-31.0); Mean Corpuscular Volume 95.7 fL (78.0-98.0); Mean Platelet Volume 9.7 fL (7.4-10.4); Platelet Count 234 thou/uL (130-400); RBC Distribution Width 11.7 % (11.5-14.5); Red Blood Cell (RBC) Count 4.12 mill/uL (4.20-5.40); White Blood Cell (WBC) Count 6.7 thou/uL (4.8-10.8)
[2020-02-19 06:57] LABS: ALT (SGPT) 47 U/L (8-55); AST (SGOT) 37 U/L (5-34); Albumin 3.2 g/dL (3.4-4.8); Alkaline Phosphatase 80 U/L (40-110); Anion Gap 15 mmol/L (10-20); BUN (Urea Nitrogen) 30 mg/dL (9.8-20.1); Bilirubin, Total 0.2 mg/dL (0.2-1.2); Calc. Creatinine Clearance 45 mL/min (70-130); Calcium 8.9 mg/dL (7.8-10.44); Carbon Dioxide 33 mmol/L (23-31); Chloride 93 mmol/L (98-107); Estimated GFR-MDRD 48; Globulin 2.6 g/dL (2.4-3.5); Glucose 97 mg/dL (80-115); Magnesium 1.9 mg/dL (1.6-2.6); Phosphorus 4.6 mg/dL (2.3-4.7); Potassium 3.6 mmol/L (3.5-5.1); Protein, Total 5.8 g/dL (6.0-8.3); Sodium 137 mmol/L (136-145)
[2020-02-19] MEDS ORDERED: Aspirin Chewable 81 MG TAB PO SCH (09:00)
[2020-02-19] MEDS: Multivit, Therapeutic 1 TAB PO SCH (09:06)
[2020-02-19] MEDS: Famotidine/PF 20 mg/2ml Vial SLOW IVP SCH ×2 (09:07→09:21)
[2020-02-19] MEDS: Amlodipine 10 MG TAB PO SCH (09:20)
[2020-02-19] MEDS: Lisinopril 20 MG TAB PO SCH (09:22)
[2020-02-19] MEDS: Aspirin 81 mg Enteric Coated Tablet PO SCH (11:06)
--- NOTE | 2020-02-19 12:05 | PDOC.DS.DS ---
Provider - Provider Date of Admission: 02/13/20 01:37 Date of Discharge: 02/19/20 Admitting Provider: Chris De León MD Consultations: Cardiology Primary Care Physician: Asuncion Vincent MD Course - Hospital Course Hospital Course: 59-year-old female who has underlying history of coronary artery disease, hypertension, dyslipidemia, seizure disorder, who was transferred from [place] emergency room for pneumonia, patient had recently PEG tube placed, we suspected aspiration pneumonia, patient has chronic dysphagia from underlying dementia required PEG tube placement, with suspected aspiration pneumonia and she was treated with clindamycin while in hospital. On admission chest x-ray showed bibasilar infiltrate, she had influenza B positive, Covid was negative, patient was given IV fluid while in hospital that made her volume overload and hypoxic respiratory failure, patient required IV Lasix and subsequently patient had some improvement, patient also developed A. fib with RVR required telemetry transfer, we treated her with Cardizem drip and p.o. Cardizem subsequently her rate was under control. Her oxygen saturation was also improving but she was needing oxygen and so with help of heel caser we arranged oxygen upon discharge. This patient has underlying chronic diastolic heart failure as well as patient is visiting from silent aspiration, patient was also needing DuoNeb therapy and that so we arranged a nebulizer machine as well. Patient was not able to see her primary care physician so we sent all new medication as well as old medication to her pharmacy. Patient is seen and examined bedside today, patient is medically stable for discharge today, plan of care discussed with the patient's family member. During this admission echocardiography showed diastolic dysfunction with moderate aortic regurgitation. Her chest x-ray showed pulmonary congestion. Resuscitation Status: 02/15/20 11:31 Resuscitation Status Routine Resuscitation Status: DNAR: NO Resuscitation Discussed with: d/w Mrs.Patricia LOZANO and sister - Labs Lab Results: 02/19/20 06:00 02/19/20 06:00 Abnormal Lab Results - Last 48 hrs 02/19/20 06:00: Chloride 93 L, Carbon Dioxide 33 H, BUN 30 H, Creatinine 1.14 H, AST 37 H, Serum Total Protein 5.8 L, Albumin 3.2 L 02/19/20 06:00: RBC 4.12 L, MCH 31.5 H, Monocytes % 13.6 H, Monocytes # 0.9 H - Physical Exam Vitals: Vital Signs (12 hours) Temp Pulse Resp BP BP Pulse Ox 02/19/20 09:22 141/83 H 02/19/20 09:20 61 141/83 H 02/19/20 08:15 99.0 F 61 20 116/74 96 02/19/20 08:00 99.0 F 74 18 141/83 H 95 02/19/20 07:56 65 18 96 02/19/20 04:00 98.8 F 63 22 H 112/75 93 L Weight Admit Weight 136 lb 11.2 oz Weight 122 lb 8 oz Physical Exam: The patient was seen and examined on the day of discharge. General patient is currently alert awake no acute distress Head normocephalic atraumatic Neck supple no JVD no meningeal signs of irritation Lungs clear to auscultation without any rhonchi or rales Cardiac S1-S2 appears regular, no murmur no gallop no rub Abdomen PEG tube in place Extremity no edema Neurologic no new finding Problem - Problem (1) Acute CHF Code(s): I50.9 - HEART FAILURE, UNSPECIFIED Status: Acute Qualifiers: Heart failure type: diastolic Qualified Code(s): I50.31 - Acute diastolic (congestive) heart failure (2) Atrial fibrillation with rapid ventricular response Code(s): I48.91 - UNSPECIFIED ATRIAL FIBRILLATION Status: Acute (3) Aspiration pneumonia Code(s): J69.0 - PNEUMONITIS DUE TO INHALATION OF FOOD AND VOMIT Status: Acute Qualifiers: Aspiration pneumonia type: due to regurgitated food Laterality: bilateral (4) Influenza B Code(s): J10.1 - FLU DUE TO OTH IDENT INFLUENZA VIRUS W OTH RESP MANIFEST Status: Acute (5) CAD (coronary artery disease) Code(s): I25.10 - ATHSCL HEART DISEASE OF [place] CORONARY ARTERY W/O ANG PCTRS Status: Chronic Qualifiers: Coronary Disease-Associated Artery/Lesion type: [place] artery [place] vs. transplanted heart: [place] heart Associated angina: with stable angina Qualified Code(s): I25.118 - Atherosclerotic heart disease of [place] coronary artery with other forms of angina pectoris (6) Dyslipidemia Code(s): E78.5 - HYPERLIPIDEMIA, UNSPECIFIED Status: Chronic (7) Dysphagia Code(s): R13.10 - DYSPHAGIA, UNSPECIFIED Status: Chronic Qualifiers: Dysphagia type: oropharyngeal phase Qualified Code(s): R13.12 - Dysphagia, oropharyngeal phase (8) HTN (hypertension) Code(s): I10 - ESSENTIAL (PRIMARY) HYPERTENSION Status: Chronic Qualifiers: Hypertension type: essential hypertension Qualified Code(s): I10 - Essential (primary) hypertension (9) Hemiparesis and other late effects of cerebrovascular accident Code(s): I69.359 - HEM[place] FOLLOWING CEREBRAL INFARCTION AFFECTING UNSP SIDE; I69.398 - OTHER SEQUELAE OF CEREBRAL INFARCTION Status: Chronic (10) Hypothyroidism Code(s): E03.9 - HYPOTHYROIDISM, UNSPECIFIED Status: Chronic Qualifiers: Hypothyroidism type: acquired Qualified Code(s): E03.9 - Hypothyroidism, unspecified (11) Seizure disorder Code(s): G40.909 - EPILEPSY, UNSP, NOT INTRACTABLE, WITHOUT STATUS EPILEPTICUS Status: Chronic Plan - Discharge Medications Prescriptions: Diltiazem HCl [Cardizem] 30 mg PO Q6HR #120 tab amLODIPine Besylate [Amlodipine Besylate] 10 mg PO DAILY #30 tab Atorvastatin Calcium 40 mg PO HS #30 tablet Clindamycin [Cleocin Oral Suspension] 300 mg PO TID #300 ml Nebulizer and Compressor [[place] Choice Nebulizer] 1 each MC Q6H PRN #1 each PRN Reason: Sob &/Or Wheezing Phenytoin [Dilantin Chewable] 200 mg PO BID #240 tab Donepezil HCl 10 mg PO HS #30 tablet Ipratropium/Albuterol Sulfate [DuoNeb] 3 ml NEB [id number] #30 neb Furosemide [Lasix] 20 mg PO DAILY #30 tab Lisinopril 40 mg PO DAILY #30 tablet Multivitamin [Multi-Vitamin Daily] 1 tab PO DAILY #30 tablet Scopolamine [Transderm Scop] 1.5 mg TD Q3D #10 patch Home Medications: Medication Instructions Recorded Confirmed Type Cholecalciferol (Vitamin D3) 1 cap PO DAILY 02/08/20 02/13/20 History [Vitamin D3] Levothyroxine Sodium 50 mcg PO DAILY 02/08/20 02/13/20 History Clindamycin [Cleocin Oral 300 mg PO TID #300 ml 02/15/20 Rx Suspension] Ipratropium/Albuterol Sulfate 3 ml NEB [id number] #30 neb 02/15/20 Rx [DuoNeb] Nebulizer and Compressor [[place] 1 each MC Q6H PRN #1 each 02/15/20 Rx Choice Nebulizer] Atorvastatin Calcium 40 mg PO HS #30 tablet 02/19/20 Rx Diltiazem HCl [Cardizem] 30 mg PO Q6HR #120 tab 02/19/20 Rx Donepezil HCl 10 mg PO HS #30 tablet 02/19/20 Rx Furosemide [Lasix] 20 mg PO DAILY #30 tab 02/19/20 Rx Lisinopril 40 mg PO DAILY #30 tablet 02/19/20 Rx Multivitamin [Multi-Vitamin Daily] 1 tab PO DAILY #30 tablet 02/19/20 Rx Phenytoin [Dilantin Chewable] 200 mg PO BID #240 tab 02/19/20 Rx Scopolamine [Transderm Scop] 1.5 mg TD Q3D #10 patch 02/19/20 Rx amLODIPine Besylate [Amlodipine 10 mg PO DAILY #30 tab 02/19/20 Rx Besylate] Allergies: No Known Allergies Allergy (Verified 02/08/20 11:46) - Discharge Instructions Activity:: Activity as Tolerated Nourishment:: Tube Feeding Diet Therapies:: Home Health, Physical Therapy, Speech Therapy Equipment/Supplies:: Nebulizer Treatments IV Therapy:: Not Applicable - Follow up Plan Referrals: [facility] [Outside] [facility] [Outside] Asuncion Vincent MD [Primary Care Provider] - 7 Days Disposition: HOME HEALTH Quality - Care Measures CORE MEASURES:: N/A
[2020-02-19 20:12] VITALS: BP 132/82; TEMP 98.5
--- NOTE | 2020-02-20 09:18 | EKG ---
Test Reason : Blood Pressure : / mmHG Vent. Rate : 123 BPM Atrial Rate : 131 BPM P-R Int : 000 ms QRS Dur : 100 ms QT Int : 340 ms P-R-T Axes : 000 013 106 degrees QTc Int : 486 ms Atrial fibrillation with rapid ventricular response Nonspecific ST and T wave abnormality Abnormal ECG Confirmed by VANCE RAMON MD ([id number]) on 02/20/2020 9:17:22 AM Referred By: SYLVIA Confirmed By:VANCE RAMON MD
--- NOTE | 2020-02-21 05:03 | PQF ---
CLINICAL DOCUMENTATION CLARIFICATION FORM: Dear : Bhanu Ruvalcaba Date / Time: 02/21/2020 6000 Please exercise your independent, professional judgment in responding to the clarification form. Clinical indicators are provided on the bottom of this form for your review Please check appropriate box(es): [ x ] Sepsis due to Aspiration Pneumonia [ ] Sepsis due to Influenza B [ ] Severe sepsis with Acute Respiratory Failure [ ] Localized infection without sepsis [ x] Other diagnosis _associated influenza B [ ] Unable to determine In addition, please specify: Present on Admission (POA): [ x ] Yes [ ] No [ ] Unable to determine Physician Signature: Date/Time: For continuity of documentation, please document condition throughout progress notes and discharge summary. Thank You. To be completed by CDI/Coding staff for physician review: Present Clinical Indicators - Signs / Symptoms / Labs Results and Location in Medical Record [X] SIRS scoring: Yes, pt did meet criteria ED notes p2 02/12 [X] BP 137/77, Pulse 75, Resp 27, Temp 99.6 Vital signs 02/12 [X] WBC 17.3, Plt count 156 Laboratory 02/12 [X] She has elevated WBC and was tachycardic H&P p1 02/12 Dr De León [X] Pneumonia, aspiration H&P p2 02/12 Dr De León [X] Influenza B H&P p2 02/12 Dr De León [X] Acute on chronic respiratory failure Physician documentation 02/17 Dr Ruvalcaba [X] Chest Xray: There is dense pleural-parenchymal opacity within the left lung base Chest Xray 02/14 Present Risk Factors Results and Location in Medical Record [X] 59 year-old Female H&P p1 02/12 Dr De León [X] HTN H&P p1 02/12 Dr De León [X] Dysphagia, high risk for aspiration H&P p1 02/12 Dr De León [X] On Peg tube H&P p1 02/12 Dr De León [X] Pneumonia, aspiration H&P p2 02/12 Dr De León [X] Influenza B H&P p2 02/12 Dr De León Present Treatments Results and Location in Medical Record [X] IVF NS 1L JUN 05 [X] IV Zosyn 3.375 gm JUN 05 [X] Tamiflu 75 mg oral JUN 05 [X] Solumedrol 20 mg JUN 05 [X] Clindamycin 300 mg oral JUN 05 [X] Oxygen 2L Respiratory Panel 02/12 [X] Septic Work up H&P p2 02/12 Dr De León CDS/[employer] Supervisor Signature: Mary Kate Ronit Hwang Phone #: ext [phone] Date/Time: 02/21/2020 0502 This is a permanent part of the Medical Record [facility]
== END 2020-02-19 21:00 | disposition home health service (06) | DRG 871 ==
LOC: ERS 23:54 → 2NO 02-13 01:37 → T4-B 02-13 14:38 → 2NO 02-16 16:18 → T4-B 02-18 16:25
PROVIDERS: ADMIT Internal Medicine; ATTEND Internal Medicine
DX: A41.89 Other specified sepsis (principal); J69.0 Pneumonitis due to inhalation of food and vomit; J96.21 Acute and chronic respiratory failure with hypoxia; I50.33 Acute on chronic diastolic (congestive) heart failure; I21.A1 Myocardial infarction type 2; J10.08 Influenza due to other identified influenza virus with other specified pneumonia; I69.359 Hemiplegia and hemiparesis following cerebral infarction affecting unspecified side; K92.0 Hematemesis; I69.351 Hemiplegia and hemiparesis following cerebral infarction affecting right dominant side; Z66 Do not resuscitate; Z20.828 Contact with and (suspected) exposure to other viral communicable diseases; E78.5 Hyperlipidemia, unspecified; I25.10 Atherosclerotic heart disease of native coronary artery without angina pectoris; G40.909 Epilepsy, unspecified, not intractable, without status epilepticus; F03.90 Unspecified dementia, unspecified severity, without behavioral disturbance, psychotic disturbance, mood disturbance, and anxiety; I48.91 Unspecified atrial fibrillation; I11.0 Hypertensive heart disease with heart failure; I35.1 Nonrheumatic aortic (valve) insufficiency; R13.12 Dysphagia, oropharyngeal phase; E03.9 Hypothyroidism, unspecified; I10 Essential (primary) hypertension; K59.09 Other constipation; K57.30 Diverticulosis of large intestine without perforation or abscess without bleeding; F79 Unspecified intellectual disabilities; E78.00 Pure hypercholesterolemia, unspecified; I71.2 Thoracic aortic aneurysm, without rupture; F41.9 Anxiety disorder, unspecified; Z93.1 Gastrostomy status; I25.2 Old myocardial infarction; Z79.899 Other long term (current) drug therapy; I69.320 Aphasia following cerebral infarction; Z87.891 Personal history of nicotine dependence
CPT/HCPCS: 36415; 36600; 71045; 80048; 80053; 80061; 80185; 82553; 82805; 83735; 83880; 84100; 84443; 84484; 85025; 93005; 93010; 93306; 94640; 94760; J0690; J1200; J1940; J2543; J2704; J2920; J3490; J7620; S0028; U0002

== ENCOUNTER 2020-04-04 11:10 | Outpatient (CLI) | payer MEDICARE, MEDICAID ==
[2020-04-04 21:25] LABS: SARS-CoV-2 MS2 Positive; SARS-CoV-2 N Gene Negative; SARS-CoV-2 S Gene Negative; SARS-CoV-2 by NAA Not Detected (NotDetected); SARS-CoV-2 orf1ab Negative
== END 2020-04-04 11:11 | disposition home or self-care (01) ==
LOC: LABBT 11:10
PROVIDERS: ATTEND Internal Medicine Gastroenterology
DX: Z01.812 Encounter for preprocedural laboratory examination (principal); Z20.822 Contact with and (suspected) exposure to COVID-19
CPT/HCPCS: 87635; U0003

== ENCOUNTER 2020-04-08 13:04 | Outpatient (CLI) | payer MEDICARE, MEDICAID ==
--- NOTE | 2020-04-08 16:07 | RAD ---
Modified barium swallow with speech therapist: 04/08/2020 HISTORY: 59-year-old female The ordering request has the following items checked: "Dysphagia following nontraumatic intracerebral hemorrhage" "Dysphagia, oropharyngeal phase" FINDINGS: Thin liquid: Premature free spillage into the vallecula, and especially piriform sinuses. Delayed swallow trigger after the free spillage. Epiglottic inversion, laryngeal elevation, and hyoid protraction within normal limits. No penetration or aspiration. No significant residue. [place]: Prominent premature free spillage into vallecula and piriform sinuses. Penetration to the vocal cord level. No significant residue in vallecula or piriform sinuses. Penetration not witnessed after repeat swallow using chin tuck. Honey thick: Premature free spillage into vallecula and piriform sinuses. Good clearance after delayed swallow. No penetration or aspiration. Puree: Premature free spillage into vallecula and piriform sinuses, with delayed swallow. Good clearance, and no penetration or aspiration. IMPRESSION: 1.) Pharyngeal dysphagia: 2) at least one episode of penetration to the vocal cord level with nectar. 3) premature free spillage into vallecula and piriform sinuses with all consistencies, and delayed sw allow.
== END 2020-04-08 13:05 | disposition home or self-care (01) ==
PROVIDERS: ATTEND Internal Medicine Gastroenterology
DX: I69.191 Dysphagia following nontraumatic intracerebral hemorrhage (principal); R13.12 Dysphagia, oropharyngeal phase
CPT/HCPCS: 74230

== ENCOUNTER 2020-07-15 10:26 | Outpatient (CLI) | payer MEDICARE, MEDICAID ==
[~2020-07-15 10:26] MED LIST: Magnevist 469MG/ML 20 ML VIAL ONE
== END 2020-07-15 10:27 | disposition home or self-care (01) ==
LOC: MRI 10:26
PROVIDERS: ATTEND Psychiatry & Neurology Neurology
DX: G40.209 Localization-related (focal) (partial) symptomatic epilepsy and epileptic syndromes with complex partial seizures, not intractable, without status epilepticus (principal)
CPT/HCPCS: 70553; A9579

== ENCOUNTER 2021-10-26 08:49 | Outpatient (CLI) | payer OTHER | END 2021-10-26 08:50 | disposition home or self-care (01) | LOC: BICULT 08:49 | PROVIDERS: ATTEND Internal Medicine Cardiovascular Disease | DX: I71.4 Abdominal aortic aneurysm, without rupture (principal); I10 Essential (primary) hypertension | CPT/HCPCS: 36415; 76775; 80053; 80061; 85025 ==

== ENCOUNTER 2021-10-29 09:25 | Outpatient (CLI) | payer OTHER ==
[2021-10-29] MEDS ORDERED: Iopamidol 370 76% 100 ML VIAL ONE (11:22)
== END 2021-10-29 09:26 | disposition home or self-care (01) ==
LOC: CT 09:25
PROVIDERS: ATTEND Internal Medicine Cardiovascular Disease
DX: I71.4 Abdominal aortic aneurysm, without rupture (principal); I21.9 Acute myocardial infarction, unspecified; I71.2 Thoracic aortic aneurysm, without rupture
CPT/HCPCS: 74175; Q9967

== ENCOUNTER 2022-07-22 00:02 | Inpatient (IN) | payer OTHER ==
[2022-07-22] MEDS ORDERED: Acetaminophen 325 MG TAB PER TUBE PRN (02:02)
[2022-07-22] MEDS ORDERED: Ondansetron PF 4 MG/2 ML Vial IVP PRN (02:02)
[2022-07-22 02:03] LABS: Hemoglobin 11.8 g/dL (12.0-16.0); Mean Corpuscular HGB CONC 32.8 g/dL (32.0-36.0); Mean Corpuscular Hemoglobin 32.2 pg (27.0-31.0); RBC Distribution Width 11.7 % (11.5-14.5); Red Blood Cell (RBC) Count 3.67 mill/uL (4.20-5.40); White Blood Cell (WBC) Count 9.5 10x3/uL (4.8-10.8)
[2022-07-22] MEDS ORDERED: Ipratropium/Albuterol 3 ML NEB ONE (02:05)
[2022-07-22 02:21] LABS: Lactic Acid 1.2 mmol/L (0.5-2.2)
[2022-07-22 02:23] LABS: Anion Gap 17 mmol/L (10-20); BUN (Urea Nitrogen) 38 mg/dL (9.8-20.1); Calc. Creatinine Clearance 0 mL/min (70-130); Calcium 9.7 mg/dL (7.8-10.44); Carbon Dioxide 26 mmol/L (23-31); Chloride 104 mmol/L (98-107); Estimated GFR 60; Glucose 135 mg/dL (80-115); Potassium 4.6 mmol/L (3.5-5.1); Sodium 142 mmol/L (136-145)
[2022-07-22] MEDS: Albuterol 200 PUFF (6.7GM INHALER) INH SCH ×2 (02:37→14:22)
[2022-07-22 02:41] LABS: #Lymphocytes 0.4 thou/uL (1.20-3.40); #Monocytes 0.8 thou/uL (0.11-0.59); #Neutrophils 8.3 thou/uL (1.40-6.50); %Basophils 0.1 % (0.0-1.0); %Eosinophils 0.1 % (0.0-10.0); %Neutrophils 87.8 % (42.0-75.0); Mean Platelet Volume 12.3 fL (7.4-10.4); Platelet Count 105 10x3/uL (130-400); Platelet Morphology Comment Appears Decreased
[2022-07-22 02:57] LABS: CKMB 2.4 ng/mL (0-6.6)
[2022-07-22] MEDS ORDERED: Piperacillin/Tazobactam 3.375 GM in Sodium Chloride 0.9% 100 ML IVPB SCH (03:00)
[2022-07-22 03:48] LABS: Magnesium 2.1 mg/dL (1.6-2.6)
[2022-07-22 03:49] LABS: ALT (SGPT) 193 U/L (8-55); AST (SGOT) 202 U/L (5-34); Albumin 3.5 g/dL (3.4-4.8); Alkaline Phosphatase 184 U/L (40-110); Bilirubin, Direct 0.3 mg/dL (0.1-0.3); Bilirubin, Total 0.5 mg/dL (0.2-1.2); Protein, Total 6.2 g/dL (5.8-8.1)
[2022-07-22] MEDS ORDERED: Piperacillin/Tazobactam 3.375 GM VIAL ONE ×2 (03:49→08:15)
[2022-07-22] MEDS ORDERED: VANCOMYCIN 1.25 GM/250 ML BAG 1.25 GM in Premix Bag 1 BAG IVPB SCH (04:30)
[2022-07-22] MEDS ORDERED: Furosemide 40 MG/4 ML VIAL ONE (06:33)
[2022-07-22] MEDS: Furosemide 40 MG/4 ML VIAL SLOW IVP SCH ×2 (06:39→16:55)
[2022-07-22 08:10] LABS: Critical Call Chem Troponin I RESULT DECREASING
[2022-07-22] MEDS ORDERED: Metoprolol Tartrate 50 MG TAB ONE ×2 (08:30→08:31)
[2022-07-22] MEDS ORDERED: Amlodipine 5 MG TAB ONE (08:30)
[2022-07-22] MEDS: Levothyroxine Sodium 50 MCG TAB PER TUBE SCH (08:34)
[2022-07-22] MEDS: Amlodipine 5 MG TAB PER TUBE SCH (08:35)
[2022-07-22] MEDS: Lisinopril 20 MG TAB PER TUBE SCH (08:36)
[2022-07-22] MEDS: Metoprolol Tartrate 100 MG TAB PO SCH ×2 (08:36→20:52)
[2022-07-22] MEDS: Piperacillin/Tazobactam 3.375 GM in Sodium Chloride 0.9% 100 ML IVPB SCH ×3 (08:47→23:47)
[2022-07-22] MEDS: Scopolamine 1.5 mg/72 hour Patch TD SCH (11:30)
[2022-07-22] MEDS: Ipratropium Bromide 0.06% Nasal Inhaler 15ml EA NARE SCH ×2 (16:52→16:53)
[2022-07-22] MEDS: Atorvastatin Calcium 40 MG TAB PER TUBE SCH (20:52)
[2022-07-22] MEDS: Phenytoin 50 MG Chewable Tablet PER TUBE SCH (20:53)
[2022-07-23] MEDS ORDERED: VANCOMYCIN 1.25 GM/250 ML BAG 1.25 GM in Premix Bag 1 BAG IVPB SCH (04:00)
[2022-07-23 05:13] LABS: Band 3 % (5-11); Hemoglobin 10.4 g/dL (12.0-16.0); Hypochromia SLIGHT = 6-15 cells (100X) (0-5/hpf); Lymphocytes 14 % (21-51); MDiff Complete? YES; Mean Corpuscular HGB CONC 33.4 g/dL (32.0-36.0); Mean Corpuscular Hemoglobin 32.7 pg (27.0-31.0); Mean Platelet Volume 12.6 fL (7.4-10.4); Monocytes 14 % (0-10); Neutrophil 68 % (42-75); Platelet Count 97 10x3/uL (130-400); Platelet Morphology Comment Appears Decreased; RBC Distribution Width 11.5 % (11.5-14.5); Reactive Lymphocytes 1 % (0-10); Red Blood Cell (RBC) Count 3.17 mill/uL (4.20-5.40)
[2022-07-23 05:22] LABS: ALT (SGPT) 185 U/L (8-55); AST (SGOT) 136 U/L (5-34); Albumin 2.9 g/dL (3.4-4.8); Alkaline Phosphatase 141 U/L (40-110); Anion Gap 16 mmol/L (10-20); BUN (Urea Nitrogen) 40 mg/dL (9.8-20.1); Bilirubin, Total 0.4 mg/dL (0.2-1.2); Calc. Creatinine Clearance 46 mL/min (70-130); Carbon Dioxide 25 mmol/L (23-31); Chloride 107 mmol/L (98-107); Estimated GFR 56; Globulin 2.4 g/dL (2.4-3.5); Glucose 102 mg/dL (80-115); Potassium 3.5 mmol/L (3.5-5.1); Protein, Total 5.3 g/dL (5.8-8.1); Sodium 144 mmol/L (136-145)
[2022-07-23] MEDS: Furosemide 40 MG/4 ML VIAL SLOW IVP SCH ×2 (05:23→16:12)
[2022-07-23] MEDS: Levothyroxine Sodium 50 MCG TAB PER TUBE SCH (05:23)
[2022-07-23] MEDS: Piperacillin/Tazobactam 3.375 GM in Sodium Chloride 0.9% 100 ML IVPB SCH ×2 (11:04→17:28)
[2022-07-23] MEDS: Metoprolol Tartrate 100 MG TAB PO SCH ×2 (11:12→21:01)
[2022-07-23] MEDS: Lisinopril 20 MG TAB PER TUBE SCH (11:12)
[2022-07-23] MEDS: Amlodipine 5 MG TAB PER TUBE SCH (11:15)
[2022-07-23] MEDS: Ipratropium Bromide 0.06% Nasal Inhaler 15ml EA NARE SCH ×3 (16:09→16:18)
[2022-07-23] MEDS: Atorvastatin Calcium 40 MG TAB PER TUBE SCH (21:01)
[2022-07-23] MEDS: Phenytoin 50 MG Chewable Tablet PER TUBE SCH (21:01)
[2022-07-23] MEDS ORDERED: Metoprolol Tartrate 5 MG/5 ML VIAL IVP SCH (23:45)
[2022-07-24] MEDS: Piperacillin/Tazobactam 3.375 GM in Sodium Chloride 0.9% 100 ML IVPB SCH ×4 (00:38→23:55)
[2022-07-24] MEDS ORDERED: Metoprolol Tartrate 5 MG/5 ML VIAL IVP SCH (00:45)
[2022-07-24] MEDS ORDERED: Diltiazem 125 MG in Sodium Chloride 0.9% 100 ML IVPB SCH ×2 (01:15→04:57)
[2022-07-24] MEDS ORDERED: Diltiazem HCl 125 MG, Admixture Fee 1 EACH in Sodium Chloride 0.9% 100 ML IVPB SCH (05:15)
[2022-07-24 05:22] LABS: ALT (SGPT) 192 U/L (8-55); AST (SGOT) 100 U/L (5-34); Alkaline Phosphatase 144 U/L (40-110); Anion Gap 14 mmol/L (10-20); BUN (Urea Nitrogen) 35 mg/dL (9.8-20.1); Bilirubin, Total 0.3 mg/dL (0.2-1.2); Calc. Creatinine Clearance 41 mL/min (70-130); Carbon Dioxide 30 mmol/L (23-31); Chloride 106 mmol/L (98-107); Estimated GFR 52; Globulin 2.6 g/dL (2.4-3.5); Glucose 150 mg/dL (80-115); Magnesium 1.9 mg/dL (1.6-2.6); Potassium 2.9 mmol/L (3.5-5.1); Protein, Total 5.6 g/dL (5.8-8.1); Sodium 147 mmol/L (136-145)
[2022-07-24] MEDS: Furosemide 40 MG/4 ML VIAL SLOW IVP SCH (05:45)
[2022-07-24] MEDS: Levothyroxine Sodium 50 MCG TAB PER TUBE SCH (05:45)
[2022-07-24 05:46] LABS: Anisocytosis SLIGHT = 6-15 cells (100X) (0-5/hpf); Eosinophils 1 % (0-10); Hemoglobin 11.3 g/dL (12.0-16.0); Lymphocytes 13 % (21-51); MDiff Complete? YES; Macrocytosis SLIGHT = 6-15 cells (100X) (0-5/hpf); Mean Corpuscular HGB CONC 34.7 g/dL (32.0-36.0); Mean Corpuscular Hemoglobin 34.1 pg (27.0-31.0); Mean Corpuscular Volume 98.4 fl (78.0-98.0); Mean Platelet Volume 11.8 fL (7.4-10.4); Monocytes 16 % (0-10); Neutrophil 70 % (42-75); Ovalocytes SLIGHT = 2-5 cells (100X) (0-1/hpf); Platelet Count 122 10x3/uL (130-400); Platelet Morphology Comment Appears Decreased; RBC Distribution Width 11.4 % (11.5-14.5); White Blood Cell (WBC) Count 6.1 10x3/uL (4.8-10.8)
[2022-07-24] MEDS ORDERED: Potassium Bicarbonate/Cit Ac 20 MEQ TAB PER TUBE SCH (06:45)
[2022-07-24] MEDS ORDERED: Dextrose 5% in Water 1,000 ML IV SCH (08:00)
[2022-07-24] MEDS: Potassium Bicarbonate/Cit Ac 25 MEQ TAB PO SCH ×3 (08:43→20:31)
[2022-07-24] MEDS: Metoprolol Tartrate 100 MG TAB PO SCH ×2 (08:44→20:34)
[2022-07-24] MEDS: Amlodipine 5 MG TAB PER TUBE SCH (08:44)
[2022-07-24] MEDS: Lisinopril 20 MG TAB PER TUBE SCH (08:44)
[2022-07-24] MEDS: Phenytoin 50 MG Chewable Tablet PER TUBE SCH (20:32)
[2022-07-24] MEDS: Atorvastatin Calcium 40 MG TAB PER TUBE SCH (20:33)
[2022-07-24] MEDS: Lisinopril 10 MG TAB PO SCH (20:33)
[2022-07-24] MEDS: Ipratropium Bromide 0.06% Nasal Inhaler 15ml EA NARE SCH (21:28)
[2022-07-24] MEDS ORDERED: Furosemide 40 MG/4 ML VIAL SLOW IVP SCH (22:15)
[2022-07-24 22:22] LABS: Actual Bicarbonate (HCO3a) 33.6 mEq/L (22-28); Base Excess (BEa) 4.5 mEq/L (-2.0 to +3.0); Calcium, Ionized (arterial) 1.18 mmol/L (1.12-1.30); Carboxyhemoglobin (COHb) 0.7 gm% (0.0-3.0); Hematocrit-ABG 42 % (36.0-47.0); Hemoglobin (Hb) 14.4 g/dL (12.0-16.0); pH, Arterial 7.289 (7.35-7.45)
[2022-07-24] MEDS ORDERED: Furosemide 40 MG/4 ML VIAL ONE (22:32)
[2022-07-24 23:46] LABS: #Eosinphils 0.1 thou/uL (0.0-0.7); #Lymphocytes 0.4 thou/uL (1.20-3.40); #Monocytes 1.4 thou/uL (0.11-0.59); #Neutrophils 11.2 thou/uL (1.40-6.50); %Basophils 0.3 % (0.0-1.0); %Eosinophils 0.4 % (0.0-10.0); %Lymphocytes 3.2 % (21.0-51.0); %Monocytes 10.6 % (0.0-10.0); %Neutrophils 85.5 % (42.0-75.0); Hemoglobin 13.5 g/dL (12.0-16.0); Mean Corpuscular HGB CONC 33.5 g/dL (32.0-36.0); Mean Corpuscular Hemoglobin 33.3 pg (27.0-31.0); Mean Corpuscular Volume 99.2 fl (78.0-98.0); Mean Platelet Volume 11.1 fL (7.4-10.4); Platelet Count 214 10x3/uL (130-400); RBC Distribution Width 11.7 % (11.5-14.5); Red Blood Cell (RBC) Count 4.05 mill/uL (4.20-5.40); White Blood Cell (WBC) Count 13.1 10x3/uL (4.8-10.8)
[2022-07-25 00:22] LABS: CO2 Tension 71.7 mmHg (35.0-45.0); O2 Tension (PaO2), arterial 56.4 mmHg (> 80.0); Puncture Site LRA
[2022-07-25 00:23] LABS: ALV-art Gradient 210.475 mmHg (0-20)
[2022-07-25] MEDS: Vancomycin HCl 750 MG in Sodium Chloride 0.9% 250 ML 250 ML IVPB SCH ×2 (00:26→23:04)
[2022-07-25] MEDS ORDERED: Lorazepam 2 MG/ML VIAL ONE (00:34)
[2022-07-25] MEDS ORDERED: Lorazepam 2 MG/ML VIAL SLOW IVP SCH (00:45)
[2022-07-25] MEDS ORDERED: Diazepam 10 MG/2 ML SYRINGE IVP PRN (00:50)
[2022-07-25] MEDS ORDERED: Lorazepam 2 MG/ML VIAL SLOW IVP PRN (00:50)
[2022-07-25] MEDS ORDERED: hydrALAZINE 20 MG/ML VIAL SLOW IVP PRN (00:56)
[2022-07-25 02:21] LABS: ALT (SGPT) 207 U/L (8-55); AST (SGOT) 97 U/L (5-34); Albumin 3.5 g/dL (3.4-4.8); Alkaline Phosphatase 180 U/L (40-110); Anion Gap 18 mmol/L (10-20); BUN (Urea Nitrogen) 34 mg/dL (9.8-20.1); Bilirubin, Total 0.6 mg/dL (0.2-1.2); Calc. Creatinine Clearance 39 mL/min (70-130); Calcium 9.7 mg/dL (7.8-10.44); Carbon Dioxide 30 mmol/L (23-31); Chloride 101 mmol/L (98-107); Estimated GFR 49; Globulin 3.1 g/dL (2.4-3.5); Glucose 209 mg/dL (80-115); Potassium 4.1 mmol/L (3.5-5.1); Protein, Total 6.6 g/dL (5.8-8.1); Sodium 145 mmol/L (136-145)
[2022-07-25] MEDS: Scopolamine 1.5 mg/72 hour Patch TD SCH (02:55)
[2022-07-25 04:12] LABS: #Lymphocytes 0.4 thou/uL (1.20-3.40); #Monocytes 0.9 thou/uL (0.11-0.59); #Neutrophils 7.7 thou/uL (1.40-6.50); %Eosinophils 0.1 % (0.0-10.0); %Monocytes 10.3 % (0.0-10.0); %Neutrophils 85.5 % (42.0-75.0); Hemoglobin 11.8 g/dL (12.0-16.0); Mean Corpuscular HGB CONC 33.3 g/dL (32.0-36.0); Mean Corpuscular Hemoglobin 33.1 pg (27.0-31.0); Mean Corpuscular Volume 99.5 fl (78.0-98.0); Platelet Count 145 10x3/uL (130-400); RBC Distribution Width 11.5 % (11.5-14.5); Red Blood Cell (RBC) Count 3.57 mill/uL (4.20-5.40)
[2022-07-25 04:35] LABS: ALT (SGPT) 173 U/L (8-55); AST (SGOT) 71 U/L (5-34); Alkaline Phosphatase 158 U/L (40-110); Anion Gap 15 mmol/L (10-20); BUN (Urea Nitrogen) 36 mg/dL (9.8-20.1); Bilirubin, Total 0.6 mg/dL (0.2-1.2); Calc. Creatinine Clearance 37 mL/min (70-130); Calcium 9.1 mg/dL (7.8-10.44); Carbon Dioxide 32 mmol/L (23-31); Chloride 103 mmol/L (98-107); Estimated GFR 46; Globulin 2.7 g/dL (2.4-3.5); Glucose 219 mg/dL (80-115); Potassium 3.9 mmol/L (3.5-5.1); Protein, Total 5.7 g/dL (5.8-8.1); Sodium 146 mmol/L (136-145)
[2022-07-25] MEDS: Levothyroxine Sodium 50 MCG TAB PER TUBE SCH (06:26)
[2022-07-25] MEDS: Aspirin Chewable 81 MG TAB PO SCH (08:39)
[2022-07-25] MEDS: Lisinopril 10 MG TAB PO SCH ×2 (08:39→20:42)
[2022-07-25] MEDS: Metoprolol Tartrate 100 MG TAB PO SCH ×2 (08:39→20:42)
[2022-07-25] MEDS: levETIRAcetam 500 MG/5 ML VIAL SLOW IVP SCH ×2 (08:39→20:43)
[2022-07-25] MEDS: Piperacillin/Tazobactam 3.375 GM in Sodium Chloride 0.9% 100 ML IVPB SCH ×3 (08:43→22:58)
[2022-07-25] MEDS ORDERED: levETIRAcetam in NS 1,500 MG in Premix Bag 1 BAG IVPB SCH (09:00)
[2022-07-25] MEDS ORDERED: Vancomycin 1 GM in Premix Bag 1 BAG IVPB SCH (09:00)
[2022-07-25 13:08] LABS: Actual Bicarbonate (HCO3v) 32.2 mEq/L (22-28); Base Excess 7.3 mEq/L (-2.0 to +3.0); Calcium, Ionized (venous) 1.15 mmol/L (1.16-1.32); Chloride (VBG) 103 mmol/L (98-106); Hematocrit-VBG 34 % (36.0-47.0); Hemoglobin (Hb) 11.6 g/dL (11.7-16.0); Potassium (VBG) 3.74 mmol/L (3.70-5.30); Sodium 143.4 mmol/L (133-146); pH (venous) 7.457 (7.32-7.43)
[2022-07-25] MEDS: Dextrose 5 %-0.45 % NaCl 1,000 ML IV SCH ×2 (13:08→23:06)
[2022-07-25] MEDS: Metoclopramide HCl 10 MG/2 ML VIAL IVP SCH ×2 (13:35→20:59)
[2022-07-25 14:43] LABS: Dilantin 3.6 ug/mL (10.0-20.0)
[2022-07-25] MEDS: Ipratropium Bromide 0.06% Nasal Inhaler 15ml EA NARE SCH ×3 (20:25→23:56)
[2022-07-25] MEDS: Phenytoin 50 MG Chewable Tablet PER TUBE SCH (20:42)
[2022-07-25] MEDS: Atorvastatin Calcium 40 MG TAB PER TUBE SCH (20:42)
[2022-07-26 04:14] LABS: #Eosinphils 0.2 thou/uL (0.0-0.7); #Monocytes 0.6 thou/uL (0.11-0.59); #Neutrophils 3.4 thou/uL (1.40-6.50); %Basophils 0.3 % (0.0-1.0); %Eosinophils 2.9 % (0.0-10.0); %Lymphocytes 18.7 % (21.0-51.0); %Monocytes 12.4 % (0.0-10.0); %Neutrophils 65.7 % (42.0-75.0); Hemoglobin 11.2 g/dL (12.0-16.0); Mean Corpuscular HGB CONC 34.3 g/dL (32.0-36.0); Mean Corpuscular Hemoglobin 34.2 pg (27.0-31.0); Mean Corpuscular Volume 99.9 fl (78.0-98.0); Platelet Count 130 10x3/uL (130-400); RBC Distribution Width 11.3 % (11.5-14.5); Red Blood Cell (RBC) Count 3.27 mill/uL (4.20-5.40); White Blood Cell (WBC) Count 5.2 10x3/uL (4.8-10.8)
[2022-07-26 04:34] LABS: Albumin 2.5 g/dL (3.4-4.8); Anion Gap 12 mmol/L (10-20); BUN (Urea Nitrogen) 36 mg/dL (9.8-20.1); Bilirubin, Total 0.4 mg/dL (0.2-1.2); Calc. Creatinine Clearance 35 mL/min (70-130); Calcium 8.8 mg/dL (7.8-10.44); Carbon Dioxide 32 mmol/L (23-31); Chloride 105 mmol/L (98-107); Estimated GFR 45; Globulin 2.3 g/dL (2.4-3.5); Glucose 120 mg/dL (80-115); Potassium 3.5 mmol/L (3.5-5.1); Protein, Total 4.8 g/dL (5.8-8.1); Sodium 145 mmol/L (136-145)
[2022-07-26 04:35] LABS: ALT (SGPT) 105 U/L (8-55); AST (SGOT) 35 U/L (5-34); Alkaline Phosphatase 109 U/L (40-110)
[2022-07-26] MEDS: Metoclopramide HCl 10 MG/2 ML VIAL IVP SCH (05:15)
[2022-07-26] MEDS: Levothyroxine Sodium 50 MCG TAB PER TUBE SCH (05:15)
[2022-07-26] MEDS: Aspirin Chewable 81 MG TAB PO SCH (09:17)
[2022-07-26] MEDS: levETIRAcetam 500 MG/5 ML VIAL SLOW IVP SCH (09:17)
[2022-07-26] MEDS: Piperacillin/Tazobactam 3.375 GM in Sodium Chloride 0.9% 100 ML IVPB SCH ×2 (09:17→17:22)
[2022-07-26] MEDS: Lisinopril 10 MG TAB PO SCH ×2 (09:17→20:43)
[2022-07-26] MEDS: Metoprolol Tartrate 100 MG TAB PO SCH ×2 (09:17→20:44)
[2022-07-26] MEDS: Ipratropium Bromide 0.06% Nasal Inhaler 15ml EA NARE SCH ×3 (09:18→20:45)
[2022-07-26] MEDS: Diltiazem HCl 125 MG, Admixture Fee 1 EACH in Sodium Chloride 0.9% 100 ML IVPB SCH (12:50)
[2022-07-26] MEDS: Dextrose 5 %-0.45 % NaCl 1,000 ML IV SCH (17:21)
[2022-07-26] MEDS: Atorvastatin Calcium 40 MG TAB PER TUBE SCH (20:43)
[2022-07-26] MEDS: levETIRAcetam 500 MG TAB PO SCH (20:43)
[2022-07-26] MEDS: Phenytoin 50 MG Chewable Tablet PER TUBE SCH (20:44)
[2022-07-26 23:27] LABS: Vancomycin, Trough 15.2 ug/mL
[2022-07-27] MEDS: Vancomycin HCl 750 MG in Sodium Chloride 0.9% 250 ML 250 ML IVPB SCH (00:38)
[2022-07-27] MEDS: Piperacillin/Tazobactam 3.375 GM in Sodium Chloride 0.9% 100 ML IVPB SCH ×3 (00:38→16:52)
[2022-07-27] MEDS: Dextrose 5 %-0.45 % NaCl 1,000 ML IV SCH (03:27)
[2022-07-27] MEDS: Diltiazem HCl 125 MG, Admixture Fee 1 EACH in Sodium Chloride 0.9% 100 ML IVPB SCH (03:27)
[2022-07-27] MEDS: Levothyroxine Sodium 50 MCG TAB PER TUBE SCH (06:19)
[2022-07-27] MEDS: Aspirin Chewable 81 MG TAB PO SCH (09:06)
[2022-07-27] MEDS: Metoprolol Tartrate 100 MG TAB PO SCH ×2 (09:06→20:27)
[2022-07-27] MEDS: Lisinopril 10 MG TAB PO SCH ×2 (09:06→20:28)
[2022-07-27] MEDS: Ipratropium Bromide 0.06% Nasal Inhaler 15ml EA NARE SCH ×4 (09:07→20:28)
[2022-07-27] MEDS: levETIRAcetam 500 mg/5 ml Oral Solution PO SCH ×2 (10:16→20:27)
[2022-07-27 11:13] VITALS: BMI 26.6
[2022-07-27] MEDS: levETIRAcetam 500 MG TAB PO SCH (19:17)
[2022-07-27] MEDS: Amiodarone 200 MG TAB PO SCH (20:27)
[2022-07-27] MEDS: Phenytoin 50 MG Chewable Tablet PER TUBE SCH (20:28)
[2022-07-27] MEDS: Atorvastatin Calcium 40 MG TAB PER TUBE SCH (20:28)
[2022-07-28] MEDS: Piperacillin/Tazobactam 3.375 GM in Sodium Chloride 0.9% 100 ML IVPB SCH ×3 (00:30→16:07)
[2022-07-28] MEDS: Vancomycin HCl 750 MG in Sodium Chloride 0.9% 250 ML 250 ML IVPB SCH (00:30)
[2022-07-28] MEDS: Scopolamine 1.5 mg/72 hour Patch TD SCH (01:55)
[2022-07-28] MEDS ORDERED: Labetalol HCl 100 MG/20 ML VIAL SLOW IVP PRN (05:25)
[2022-07-28] MEDS: hydrALAZINE 20 MG/ML VIAL SLOW IVP PRN (05:44)
[2022-07-28] MEDS: Levothyroxine Sodium 50 MCG TAB PER TUBE SCH (05:48)
[2022-07-28 08:13] LABS: #Eosinphils 0.2 thou/uL (0.0-0.7); #Lymphocytes 0.7 thou/uL (1.20-3.40); #Monocytes 0.7 thou/uL (0.11-0.59); #Neutrophils 7.9 thou/uL (1.40-6.50); %Basophils 0.2 % (0.0-1.0); %Eosinophils 2.3 % (0.0-10.0); %Lymphocytes 7.2 % (21.0-51.0); %Monocytes 7.7 % (0.0-10.0); %Neutrophils 82.6 % (42.0-75.0); Hemoglobin 11.6 g/dL (12.0-16.0); Mean Corpuscular Hemoglobin 32.5 pg (27.0-31.0); Mean Corpuscular Volume 98.4 fl (78.0-98.0); Mean Platelet Volume 10.4 fL (7.4-10.4); Platelet Count 165 10x3/uL (130-400); RBC Distribution Width 11.3 % (11.5-14.5); Red Blood Cell (RBC) Count 3.57 mill/uL (4.20-5.40); White Blood Cell (WBC) Count 9.5 10x3/uL (4.8-10.8)
[2022-07-28 08:33] LABS: ALT (SGPT) 84 U/L (8-55); AST (SGOT) 56 U/L (5-34); Albumin 2.6 g/dL (3.4-4.8); Alkaline Phosphatase 125 U/L (40-110); Anion Gap 11 mmol/L (10-20); BUN (Urea Nitrogen) 34 mg/dL (9.8-20.1); Bilirubin, Total 0.4 mg/dL (0.2-1.2); Calc. Creatinine Clearance 41 mL/min (70-130); Carbon Dioxide 27 mmol/L (23-31); Chloride 109 mmol/L (98-107); Estimated GFR 51; Globulin 2.3 g/dL (2.4-3.5); Glucose 101 mg/dL (80-115); Potassium 3.8 mmol/L (3.5-5.1); Protein, Total 4.9 g/dL (5.8-8.1); Sodium 143 mmol/L (136-145)
[2022-07-28] MEDS: Aspirin Chewable 81 MG TAB PO SCH (09:14)
[2022-07-28] MEDS: Metoprolol Tartrate 100 MG TAB PO SCH ×2 (09:14→21:04)
[2022-07-28] MEDS: Amiodarone 200 MG TAB PO SCH ×2 (09:14→21:04)
[2022-07-28] MEDS: Lisinopril 10 MG TAB PO SCH (09:15)
[2022-07-28] MEDS: levETIRAcetam 500 mg/5 ml Oral Solution PO SCH ×2 (09:24→21:05)
[2022-07-28] MEDS: Ipratropium Bromide 0.06% Nasal Inhaler 15ml EA NARE SCH (09:25)
[2022-07-28] MEDS ORDERED: Lisinopril 20 MG TAB PO SCH (09:30)
[2022-07-28] MEDS ORDERED: Amlodipine 5 MG TAB PO SCH (09:30)
[2022-07-28] MEDS: Amoxicillin/Potassium Clav 875 MG TAB PO SCH (21:04)
[2022-07-28] MEDS: Atorvastatin Calcium 40 MG TAB PER TUBE SCH (21:04)
[2022-07-28] MEDS: Lisinopril 20 MG TAB PO SCH (21:04)
[2022-07-28] MEDS: Phenytoin 50 MG Chewable Tablet PER TUBE SCH (21:07)
[2022-07-29 04:38] LABS: ALT (SGPT) 65 U/L (8-55); AST (SGOT) 36 U/L (5-34); Albumin 2.5 g/dL (3.4-4.8); Alkaline Phosphatase 114 U/L (40-110); Anion Gap 10 mmol/L (10-20); BUN (Urea Nitrogen) 34 mg/dL (9.8-20.1); Bilirubin, Total 0.2 mg/dL (0.2-1.2); Calc. Creatinine Clearance 45 mL/min (70-130); Calcium 8.9 mg/dL (7.8-10.44); Carbon Dioxide 28 mmol/L (23-31); Chloride 110 mmol/L (98-107); Estimated GFR 57; Globulin 2.2 g/dL (2.4-3.5); Glucose 91 mg/dL (80-115); Potassium 3.7 mmol/L (3.5-5.1); Protein, Total 4.7 g/dL (5.8-8.1); Sodium 144 mmol/L (136-145)
[2022-07-29] MEDS: Levothyroxine Sodium 50 MCG TAB PER TUBE SCH (04:57)
[2022-07-29] MEDS: hydrALAZINE 20 MG/ML VIAL SLOW IVP PRN (05:00)
[2022-07-29] MEDS: Ipratropium Bromide 0.06% Nasal Inhaler 15ml EA NARE SCH ×4 (06:44→12:58)
[2022-07-29] MEDS ORDERED: Amlodipine 5 MG TAB PO SCH ×2 (09:00→21:00)
[2022-07-29] MEDS: levETIRAcetam 500 mg/5 ml Oral Solution PO SCH (09:51)
[2022-07-29] MEDS: Amiodarone 200 MG TAB PO SCH (09:51)
[2022-07-29] MEDS: Lisinopril 20 MG TAB PO SCH (09:52)
[2022-07-29] MEDS: Aspirin Chewable 81 MG TAB PO SCH (09:52)
[2022-07-29] MEDS: Amoxicillin/Potassium Clav 875 MG TAB PO SCH (09:53)
[2022-07-29] MEDS: Metoprolol Tartrate 100 MG TAB PO SCH (09:59)
[2022-07-29 12:58] VITALS: TEMP 98
[2022-07-29 16:03] VITALS: BP 138/77
[2022-07-29] MEDS ORDERED: Apixaban 5 MG TAB PO SCH (21:00)
== END 2022-07-29 16:30 | disposition home or self-care (01) | DRG 871 ==
LOC: ERS 00:02 → ERHOLD 02:06 → 2NO 02:29 → CCU 07-24 22:30 → IMCU/EMU 07-24 23:16 → 2NO 07-28 15:41
PROVIDERS: ADMIT Internal Medicine; ATTEND Internal Medicine
PROC: 3E03329 Introduction of Other Anti-infective into Peripheral Vein, Percutaneous Approach (ICD-10-PCS; principal; 2022-07-22)
PROC: 5A09357 Assistance with Respiratory Ventilation, Less than 24 Consecutive Hours, Continuous Positive Airway Pressure (ICD-10-PCS; 2022-07-25)
DX: A41.9 Sepsis, unspecified organism (principal); Z66 Do not resuscitate; G93.41 Metabolic encephalopathy; I21.A1 Myocardial infarction type 2; I50.33 Acute on chronic diastolic (congestive) heart failure; J18.9 Pneumonia, unspecified organism; J69.0 Pneumonitis due to inhalation of food and vomit; J96.21 Acute and chronic respiratory failure with hypoxia; J96.22 Acute and chronic respiratory failure with hypercapnia; N17.9 Acute kidney failure, unspecified; E87.20 Acidosis, unspecified; I69.351 Hemiplegia and hemiparesis following cerebral infarction affecting right dominant side; G40.919 Epilepsy, unspecified, intractable, without status epilepticus; I48.0 Paroxysmal atrial fibrillation; I11.0 Hypertensive heart disease with heart failure; E03.9 Hypothyroidism, unspecified; E78.5 Hyperlipidemia, unspecified; I25.10 Atherosclerotic heart disease of native coronary artery without angina pectoris; R77.8 Other specified abnormalities of plasma proteins; R94.5 Abnormal results of liver function studies; F03.90 Unspecified dementia, unspecified severity, without behavioral disturbance, psychotic disturbance, mood disturbance, and anxiety; I71.40 Abdominal aortic aneurysm, without rupture, unspecified; Z99.81 Dependence on supplemental oxygen; Z79.899 Other long term (current) drug therapy; Z79.890 Hormone replacement therapy; Z79.82 Long term (current) use of aspirin; I69.320 Aphasia following cerebral infarction; Z95.0 Presence of cardiac pacemaker; Z82.49 Family history of ischemic heart disease and other diseases of the circulatory system; Z87.891 Personal history of nicotine dependence; Z93.1 Gastrostomy status; I69.321 Dysphasia following cerebral infarction
CPT/HCPCS: 36415; 36416; 36600; 71045; 76705; 80048; 80053; 80076; 80185; 80202; 82140; 82553; 82805; 83605; 83735; 84145; 84484; 85025; 87081; 93005; 93010; 93306; 94640; 94660; 94760; 95816; 95819; 95957; 97139; J0360; J1650; J1940; J1953; J2060; J2405; J2543; J2765; J3370; J3490; J7042; J7050; J7070; J7611; J7620

== ENCOUNTER 2023-04-19 15:35 | Outpatient (CLI) | payer OTHER, MEDICAID | END 2023-04-19 15:36 | disposition home or self-care (01) | LOC: RAD 15:35 | PROVIDERS: ATTEND Family Medicine | DX: J69.0 Pneumonitis due to inhalation of food and vomit (principal); I51.7 Cardiomegaly | CPT/HCPCS: 71046 ==

== ENCOUNTER 2023-05-13 12:45 | Outpatient (CLI) | payer OTHER, MEDICAID | END 2023-05-13 12:46 | disposition home or self-care (01) | LOC: BICRAD 12:45 | PROVIDERS: ATTEND Physician Assistant Medical | DX: K94.20 Gastrostomy complication, unspecified (principal); K59.09 Other constipation; R14.0 Abdominal distension (gaseous); I70.0 Atherosclerosis of aorta; I71.40 Abdominal aortic aneurysm, without rupture, unspecified; K63.89 Other specified diseases of intestine; R93.5 Abnormal findings on diagnostic imaging of other abdominal regions, including retroperitoneum | CPT/HCPCS: 74019 ==

== ENCOUNTER 2023-08-16 12:42 | Inpatient (IN) | payer OTHER ==
[2023-08-16] MEDS ORDERED: Lorazepam 2 MG/ML VIAL SLOW IVP PRN ×2 (13:04→17:00)
[2023-08-16] MEDS ORDERED: Bisacodyl 10 MG SUPP PR PRN (13:06)
[2023-08-16] MEDS ORDERED: GLYCOPYRROLATE/PF 0.2 MG/ML VIAL SLOW IVP PRN (13:07)
[2023-08-16] MEDS ORDERED: Morphine 2 MG/ML VIAL SLOW IVP PRN (13:07)
[2023-08-16] MEDS ORDERED: hydrALAZINE 20 MG/ML VIAL SLOW IVP PRN (13:10)
[2023-08-16] MEDS ORDERED: Haloperidol Lactate 5 MG/ML VIAL SLOW IVP PRN (13:15)
[2023-08-16] MEDS ORDERED: Ondansetron PF 4 MG/2 ML Vial IVP PRN (13:15)
[2023-08-16] MEDS: Ipratropium/Albuterol 3 ML NEB NEB SCH (13:48)
[2023-08-16] MEDS: Scopolamine 1 mg/72 hour Patch TOP SCH (13:52)
[2023-08-16] MEDS ORDERED: Ipratropium/Albuterol 3 ML NEB NEB PRN (14:26)
[2023-08-16] MEDS: Piperacillin/Tazobactam 3.375 GM in Sodium Chloride 0.9% 100 ML IVPB SCH (15:29)
[2023-08-16] MEDS: hydrALAZINE 25 MG TAB PO SCH (15:29)
[2023-08-16] MEDS: Amlodipine 5 MG TAB PER TUBE SCH (21:33)
[2023-08-16] MEDS: Metoprolol Tartrate 25 MG TAB PER TUBE SCH (21:33)
[2023-08-16] MEDS: levETIRAcetam 500 mg/5 ml Oral Solution PER TUBE SCH (21:33)
[2023-08-17] MEDS: Acetaminophen 650 MG Suppository PR PRN (06:00)
[2023-08-17] MEDS: Amiodarone 200 MG TAB PER TUBE SCH (07:51)
[2023-08-17] MEDS: Aspirin Chewable 81 MG TAB PER TUBE SCH (07:52)
[2023-08-17] MEDS: Phenytoin 100 MG (4 mL) UDCUP PER TUBE SCH (10:04)
[2023-08-17 18:31] VITALS: BP 179/72; TEMP 99.4
[2023-08-23] MEDS ORDERED: cloNIDine 0.2mg/24 Hour PATCH TD SCH (09:00)
== END 2023-08-17 18:59 | disposition home or self-care (01) | DRG 951 ==
LOC: CCU 12:42 → T4-A 16:09
PROVIDERS: ADMIT Family Medicine; ATTEND Family Medicine
DX: Z51.5 Encounter for palliative care (principal); J96.21 Acute and chronic respiratory failure with hypoxia; J69.0 Pneumonitis due to inhalation of food and vomit; N17.9 Acute kidney failure, unspecified; I50.9 Heart failure, unspecified; I48.91 Unspecified atrial fibrillation; F03.90 Unspecified dementia, unspecified severity, without behavioral disturbance, psychotic disturbance, mood disturbance, and anxiety; E78.5 Hyperlipidemia, unspecified; E03.9 Hypothyroidism, unspecified; G40.909 Epilepsy, unspecified, not intractable, without status epilepticus; I71.9 Aortic aneurysm of unspecified site, without rupture; N18.9 Chronic kidney disease, unspecified; Z66 Do not resuscitate; Z79.01 Long term (current) use of anticoagulants; Z79.899 Other long term (current) drug therapy; Z79.82 Long term (current) use of aspirin
CPT/HCPCS: 94640; J2543; J3490; J7620

== ENCOUNTER 2023-09-22 08:05 | Outpatient (CLI) | payer OTHER, MEDICAID | END 2023-09-22 08:06 | disposition home or self-care (01) | LOC: BICCT 08:05 | PROVIDERS: ATTEND Physician Assistant Medical | DX: R93.5 Abnormal findings on diagnostic imaging of other abdominal regions, including retroperitoneum (principal); I71.40 Abdominal aortic aneurysm, without rupture, unspecified; I71.43 Infrarenal abdominal aortic aneurysm, without rupture; I51.7 Cardiomegaly; I31.39 Other pericardial effusion (noninflammatory); I71.20 Thoracic aortic aneurysm, without rupture, unspecified | CPT/HCPCS: 74178 ==

== ENCOUNTER 2024-02-09 14:50 | Outpatient (CLI) | payer OTHER, MEDICAID | END 2024-02-09 14:51 | disposition home or self-care (01) | LOC: SCSRAD 14:50 | PROVIDERS: ATTEND Family Medicine | DX: J06.9 Acute upper respiratory infection, unspecified (principal); R05.9 Cough, unspecified; R09.89 Other specified symptoms and signs involving the circulatory and respiratory systems; I51.7 Cardiomegaly; Z87.01 Personal history of pneumonia (recurrent) | CPT/HCPCS: 71046 ==

== ENCOUNTER 2024-03-02 13:19 | Outpatient (CLI) | payer OTHER, MEDICAID | END 2024-03-02 13:20 | disposition home or self-care (01) | LOC: SCSRAD 13:19 | DX: R06.02 Shortness of breath (principal) | CPT/HCPCS: 71046 ==

== ENCOUNTER 2024-03-12 11:51 | Outpatient (CLI) | payer OTHER, MEDICAID | END 2024-03-12 11:52 | disposition home or self-care (01) | LOC: SCSRAD 11:51 | PROVIDERS: ATTEND Family Medicine | DX: R05.3 Chronic cough (principal); Z87.09 Personal history of other diseases of the respiratory system | CPT/HCPCS: 71046 ==